=== PATIENT | male | born 1960 | race Caucasian/White ===

== ENCOUNTER 2016-06-17 08:41 | Emergency (ER) | payer OTHER ==
[~2016-06-17] VITALS: Ht 177.8 cm; Wt 89.2 kg
[~2016-06-17 08:41] MED LIST: ACETAMINOPHEN325 M1 PO; ALDACTONE50 MG PO; AMOXICILLIN875 MG PO; ASPIR-LOW81 MG PO; AUGMENTIN875 MG PO; B-121000 MC2 PO; BENTYL20 MG PO; CETIRIZINE HCL5 MG PO; CONSTULOSE10 GM/15 M PO; CORGARD20 MG PO; CYANOCOBALAM1000 MCG PO; DAILY VALUE1 EACH PO; DAILY VITE1 EAC1 PO; DESMOPRESS10 MCG/0.3 NS; DICYCLOMINE HCL20 MG PO; ENDOCET 5-3251 EACH PO; ENULOSE10 GM/15 M PO; FOLIC ACID1 MG PO; GABAPENTIN300 MG PO; INDERAL10 MG PO; K-DUR20 MEQ PO; KEPPRA500 MG PO; LASIX20 MG PO; LEVAQUIN750 MG PO; LEVOFLOXACIN750 MG PO; LIBRIUM25 MG PO; LISINOPRIL2.5 MG PO; MEN'S MULTI-VI1 EACH PO; MEPHYTON5 MG PO; NADOLOL20 MG PO; NADOLOL40 MG PO; ONCE DAILY1 EACH PO; PANTOPRAZOLE SO40 MG PO; PEPCID40 MG PO; PROTONIX40 MG PO; REGLAN10 MG PO; TRAMADOL HCL50 MG PO; TYLENOL REGULA325 MG PO; ULTRAM50 MG PO; VITAMIN B-1100 MG PO; ZOFRAN4 MG PO
[2016-06-17 09:32] LABS: HEMATOCRIT 29.9 % (38.0-50.0); MCH 26.6 PG (29.0-34.0); MCHC 31.4 G/DL (30.0-36.0); MCV 84.7 FL (86-99); MEAN PLAT.VOLUME 9.5 uM^3 (9.0-12.4); PLATELET COUNT 65 K/uL (156-360); RBC DIS.WIDTH-CV 21.3 % (11.8-14.6); RBC DIS.WIDTH-SD 61.8 % (39-53); RED BLOOD COUNT 3.53 M/uL (4.00-5.50)
[2016-06-17 09:34] LABS: BASOPHIL COUNT 0.1 K/uL (0-0.1); EOSINOPHIL (%) 5.1 % (0-5); EOSINOPHIL COUNT 0.2 K/uL (0-0.3); IMMATURE GRANULOCYTE (%) 0.3 % (0.0-0.7); IMMATURE GRANULOCYTE COUNT 0.1 K/uL; LYMPHOCYTE COUNT 1.3 K/uL (1.0-2.8); MONOCYTE COUNT 0.9 K/uL (0-0.8); NEUTROPHIL (%) 32.8 % (45-76); NEUTROPHIL COUNT 1.2 K/uL (1.8-6.4)
[2016-06-17 09:39] LABS: WHITE BLOOD COUNT 3.7 K/uL (4.1-10.2)
[2016-06-17 09:43] LABS: CHLORIDE 108 mEq/L (99-109); POTASSIUM 4.2 mEq/L (3.7-5.4)
[2016-06-17 09:45] LABS: GLUCOSE 109 mg/dL (70-99); SODIUM 142 mEq/L (136-147)
[2016-06-17 09:47] LABS: ANION GAP 11 MEQ/L (2-14); TOTAL BILIRUBIN 2.4 mg/dL (0.0-1.0)
[2016-06-17 09:49] LABS: ALKALINE PHOSPHATASE 160 IU/L (3-129); GFR ESTIMATE (CALCULATED) > 59 mL/min/
[2016-06-17 09:50] LABS: UREA NITROGEN (BUN) 8 mg/dL (9-23)
[2016-06-17 10:28] LABS: ADD MIUA? YES; BILIRUBIN MODERATE; BLOOD NEGATIVE; COLOR AMBER ((YELLOW)); GLUCOSE (STRIP) NEGATIVE; KETONES NEGATIVE; LEUKOCYTES NEGATIVE; NITRITE NEGATIVE; PROTEIN (STRIP) 30; SPECIFIC GRAVITY 1.023 (1.000-1.030)
[2016-06-17 10:37] LABS: ICTOTEST NEGATIVE
[2016-06-17 10:55] LABS: BACTERIA RARE /HPF; EPITHELIAL CELLS RARE /HPF; HYALINE CASTS 0-5 /LPF; MUCUS 1+ /LPF; RED BLOOD CELLS 0-5 /HPF (0-5); UCUL ADDED? NO; WHITE BLOOD CELLS 0-5 /HPF (0-5)
[2016-06-17 11:37] LABS: HEMATOLOGY COMMENT 1 SMEAR COMPATIBLE; PLAT.SUFFICIENCY DECREASED; USER ID TLW
[2016-06-17 19:26] VITALS: BP 142/76
== END 2016-06-17 19:38 | disposition short-term general hospital (02) ==
LOC: EME 08:41
DX: R79.89 Other specified abnormal findings of blood chemistry (principal); D68.0 Von Willebrand disease; C85.90 Non-Hodgkin lymphoma, unspecified, unspecified site; G46.3 Brain stem stroke syndrome; B19.20 Unspecified viral hepatitis C without hepatic coma
CPT/HCPCS: 80053; 81003; 85025; 99281; 99284; J7030

== ENCOUNTER 2016-06-29 19:46 | Inpatient (IN) | payer OTHER ==
[~2016-06-29] VITALS: Ht 177.8 cm; Wt 86.5 kg
[2016-06-29 20:20] LABS: CHLORIDE 111 mEq/L (99-109); SODIUM 147 mEq/L (136-147)
[2016-06-29 20:22] LABS: GLUCOSE 129 mg/dL (70-99)
[2016-06-29 20:23] LABS: ANION GAP 12 MEQ/L (2-14)
[2016-06-29 20:26] LABS: GFR ESTIMATE (CALCULATED) > 59 mL/min/; UREA NITROGEN (BUN) 6 mg/dL (9-23)
[2016-06-29 20:39] LABS: HEMATOCRIT 31.2 % (38.0-50.0); MCH 26.3 PG (29.0-34.0); MCHC 31.4 G/DL (30.0-36.0); MCV 83.9 FL (86-99); MEAN PLAT.VOLUME 11.2 uM^3 (9.0-12.4); PLATELET COUNT 80 K/uL (156-360); RBC DIS.WIDTH-SD 64.9 % (39-53); RED BLOOD COUNT 3.72 M/uL (4.00-5.50); WHITE BLOOD COUNT 3.5 K/uL (4.1-10.2)
[2016-06-29 20:43] LABS: SERUM ETHYL ALCOHOL 453 mg/dL
[2016-06-29 20:45] LABS: INTER. NORMALIZED RATIO 1.3; PROTHROMBIN TIME 13.8 (9.2-11.2)
[2016-06-29 20:47] LABS: LIPASE 25 U/L (1.0-51.0)
[2016-06-29] MEDS ORDERED: CORGARD40 MG PO (21:31)
[2016-06-29] MEDS ORDERED: PROTONIX40 MG PO (21:31)
[2016-06-29] MEDS ORDERED: CETIRIZINE HCL5 MG PO (21:32)
[2016-06-29] MEDS ORDERED: MEPHYTON5 MG PO (21:32)
[2016-06-29] MEDS ORDERED: EYE DROP LEFT EYE (21:33)
[2016-06-29 23:03] VITALS: BP 138/84
[2016-06-30 00:32] LABS: ADD MIUA? NO; BILIRUBIN NEGATIVE; BLOOD NEGATIVE; COLOR YELLOW ((YELLOW)); GLUCOSE (STRIP) NEGATIVE; KETONES NEGATIVE; LEUKOCYTES NEGATIVE; NITRITE NEGATIVE; PROTEIN (STRIP) NEGATIVE; SPECIFIC GRAVITY 1.015 (1.000-1.030); UCUL ADDED? NO
[2016-06-30 00:59] LABS: HEMATOCRIT 28.8 % (38.0-50.0); MCV 84.7 FL (86-99)
[2016-06-30 01:20] LABS: TROP-I INTERPRETATION NEGATIVE; TROPONIN-I < 0.01 ng/mL (0.0-0.30)
[2016-06-30 04:00] VITALS: BP 120/68
[2016-06-30 07:05] LABS: HEMATOCRIT 29.5 % (38.0-50.0)
[2016-06-30 07:28] LABS: ALKALINE PHOSPHATASE 114 IU/L (3-129); ANION GAP 11 MEQ/L (2-14); CHLORIDE 108 MEQ/L (99-109); GFR ESTIMATE (CALCULATED) > 59 mL/min/; POTASSIUM 3.8 MEQ/L (3.7-5.4); SAMPLE HEMOLYSIS CHECK 0; SAMPLE ICTERIC CHECK 0; SAMPLE LIPEMIA CHECK 0; SODIUM 144 MEQ/L (136-147); TOTAL BILIRUBIN 2.6 MG/DL (0.0-1.0); UREA NITROGEN (BUN) 5 mg/dL (9-23)
[2016-06-30 07:33] LABS: GLUCOSE 82 mg/dL (70-99); TROP-I INTERPRETATION NEGATIVE; TROPONIN-I < 0.01 ng/mL (0.0-0.30)
[2016-06-30 08:09] VITALS: BP 127/75
[2016-06-30 12:14] VITALS: BP 132/74
[2016-06-30 16:10] VITALS: BP 136/74
[2016-06-30 16:19] LABS: HEMATOCRIT 28.7 % (38.0-50.0); MCV 86.7 FL (86-99)
[2016-06-30 20:00] VITALS: BP 133/68
[2016-07-01] VITALS: BP 145/75
[2016-07-01 01:16] LABS: HEMATOCRIT 27.7 % (38.0-50.0); MCV 86.6 FL (86-99)
[2016-07-01 03:44] VITALS: BP 135/91
[2016-07-01 06:46] LABS: HEMATOCRIT 26.3 % (38.0-50.0); MCH 27.8 PG (29.0-34.0); MCHC 32.3 G/DL (30.0-36.0); MCV 85.9 FL (86-99); NRBC (%) 0.7 /100 WBC (0-0); RBC DIS.WIDTH-SD 63.4 % (39-53); RED BLOOD COUNT 3.06 M/uL (4.00-5.50)
[2016-07-01 07:00] VITALS: BP 146/76
[2016-07-01 07:15] LABS: EOSINOPHIL (%) 0.8 % (0-5); IMMATURE GRANULOCYTE (%) 0.4 % (0.0-0.7); LYMPHOCYTE COUNT 0.5 K/uL (1.0-2.8); MONOCYTE (%) 18.9 % (3-12); MONOCYTE COUNT 0.5 K/uL (0-0.8); NEUTROPHIL (%) 59.8 % (45-76); NEUTROPHIL COUNT 1.5 K/uL (1.8-6.4)
[2016-07-01 07:24] LABS: WHITE BLOOD COUNT 2.4 K/uL (4.1-10.2)
[2016-07-01 07:26] LABS: HEMATOLOGY COMMENT 1 SMEAR COMPATIBLE; PLAT.SUFFICIENCY DECREASED; USER ID TLW
[2016-07-01 07:30] LABS: ALKALINE PHOSPHATASE 107 IU/L (3-129); ANION GAP 9 MEQ/L (2-14); CHLORIDE 105 MEQ/L (99-109); GFR ESTIMATE (CALCULATED) > 59 mL/min/; POTASSIUM 3.6 MEQ/L (3.7-5.4); SAMPLE HEMOLYSIS CHECK 0; SAMPLE ICTERIC CHECK 1; SAMPLE LIPEMIA CHECK 0; SODIUM 140 MEQ/L (136-147); UREA NITROGEN (BUN) 11 mg/dL (9-23)
[2016-07-01 07:33] LABS: PLATELET COUNT 40 K/uL (156-360)
[2016-07-01 07:35] LABS: GLUCOSE 154 mg/dL (70-99); TOTAL BILIRUBIN 4.5 MG/DL (0.0-1.0)
[2016-07-01 11:44] VITALS: BP 142/80
[2016-07-01 13:12] LABS: POC NON-PRINT COM 1 ND
[2016-07-01 15:55] VITALS: BP 137/77
[2016-07-01 16:24] LABS: HEMATOCRIT 29.3 % (38.0-50.0); MCV 86.2 FL (86-99)
[2016-07-01 19:30] VITALS: BP 130/72
[2016-07-02] VITALS (7 sets, daily range): BP systolic 115–140; BP diastolic 68–89
[2016-07-02 00:36] LABS: HEMATOCRIT 27.2 % (38.0-50.0); MCV 85.5 FL (86-99)
[2016-07-02 08:38] LABS: HEMATOCRIT 24.3 % (38.0-50.0); MCV 85.3 FL (86-99)
[2016-07-02 15:49] LABS: HEMATOCRIT 25.3 % (38.0-50.0); MCV 84.6 FL (86-99)
[2016-07-03 00:51] LABS: HEMATOCRIT 24.8 % (38.0-50.0); MCV 85.5 FL (86-99)
[2016-07-03 04:00] VITALS: BP 119/71
[2016-07-03 08:05] VITALS: BP 116/61
[2016-07-03 09:11] LABS: HEMATOCRIT 24.8 % (38.0-50.0); MCV 84.6 FL (86-99)
[2016-07-03 11:38] VITALS: BP 126/73
[2016-07-03 15:35] VITALS: BP 122/70
[2016-07-03 16:49] LABS: HEMATOCRIT 24.4 % (38.0-50.0); MCV 84.1 FL (86-99)
[2016-07-03 19:47] VITALS: BP 123/68
[2016-07-03 23:49] VITALS: BP 106/60
[2016-07-04 00:33] LABS: HEMATOCRIT 25.1 % (38.0-50.0)
[2016-07-04 03:40] VITALS: BP 112/62
[2016-07-04 07:48] VITALS: BP 114/67
[2016-07-04 08:57] LABS: HEMATOCRIT 25.4 % (38.0-50.0); MCV 84.7 FL (86-99)
[2016-07-04 11:35] VITALS: BP 118/67
== END 2016-07-04 15:20 | disposition home or self-care (01) | DRG 378 ==
LOC: EME → EDBD 19:46 → EDOF 22:29 → 5SOUTH 22:29
PROVIDERS: Emergency Medicine; Hospitalist; Specialist
DX: K29.91 Gastroduodenitis, unspecified, with bleeding (principal); K70.30 Alcoholic cirrhosis of liver without ascites; D68.0 Von Willebrand disease; K92.0 Hematemesis; F17.210 Nicotine dependence, cigarettes, uncomplicated; B18.2 Chronic viral hepatitis C; F10.220 Alcohol dependence with intoxication, uncomplicated; Y90.8 Blood alcohol level of 240 mg/100 ml or more; D50.0 Iron deficiency anemia secondary to blood loss (chronic)
CPT/HCPCS: 80048; 80053; 81003; 82272; 83690; 84484; 85014; 85018; 85025; 85027; 85610; 86850; 86900; 86901; 86920; 99281; 99285; C9113; G0480; J2060; J2270; J2354; J2405; J2765; J3411; J3475; J7030; J7042; J7050; Q0164

== ENCOUNTER 2016-07-11 21:01 | Emergency (ER) | payer OTHER ==
[~2016-07-11] VITALS: Ht 177.8 cm; Wt 84.4 kg
[~2016-07-11 21:01] MED LIST changes: +CORGARD40 MG PO; +EYE DROP LEFT EYE
[2016-07-11 21:36] LABS: HEMATOCRIT 30.9 % (38.0-50.0); MCH 27.2 PG (29.0-34.0); MCHC 32.4 G/DL (30.0-36.0); MEAN PLAT.VOLUME 9.9 uM^3 (9.0-12.4); RBC DIS.WIDTH-CV 21.3 % (11.8-14.6); RBC DIS.WIDTH-SD 65.1 % (39-53)
[2016-07-11 21:37] LABS: PLATELET COUNT 66 K/uL (156-360); RED BLOOD COUNT 3.68 M/uL (4.00-5.50); WHITE BLOOD COUNT 6.3 K/uL (4.1-10.2)
[2016-07-11 21:47] LABS: CHLORIDE 106 mEq/L (99-109); INTER. NORMALIZED RATIO 1.4; POTASSIUM 3.7 mEq/L (3.7-5.4); PROTHROMBIN TIME 14.3 (9.2-11.2); SODIUM 142 mEq/L (136-147)
[2016-07-11 21:49] LABS: GLUCOSE 135 mg/dL (70-99)
[2016-07-11 21:50] LABS: ANION GAP 14 MEQ/L (2-14)
[2016-07-11 21:51] LABS: TOTAL BILIRUBIN 2.9 mg/dL (0.0-1.0)
[2016-07-11 21:53] LABS: ALKALINE PHOSPHATASE 158 IU/L (3-129); GFR ESTIMATE (CALCULATED) > 59 mL/min/
[2016-07-11 21:54] LABS: DIRECT BILIRUBIN 1.9 mg/dL (0.0-0.3); UREA NITROGEN (BUN) 5 mg/dL (9-23)
[2016-07-11 21:56] LABS: LIPASE 28 U/L (1.0-51.0)
[2016-07-11] MEDS ORDERED: KRISTALOSE20 GM PO (23:55)
[2016-07-12 00:07] VITALS: BP 116/62
[2016-07-13] MEDS ORDERED: LIBRIUM25 MG PO (03:14)
[2016-07-13] MEDS ORDERED: THIAMINE HCL100 MG PO (03:14)
== END 2016-07-12 00:16 | disposition home or self-care (01) ==
LOC: EME → EDBD 21:01 → EME 07-12 00:16
PROVIDERS: Emergency Medicine
DX: R11.10 Vomiting, unspecified (principal); E86.0 Dehydration; I10 Essential (primary) hypertension; D66 Hereditary factor VIII deficiency
CPT/HCPCS: 80048; 80076; 82140; 83690; 85027; 85610; 86850; 86900; 86901; 99281; 99285; C9113; J7030

== ENCOUNTER 2016-07-12 22:51 | Emergency (ER) | payer OTHER ==
[~2016-07-12] VITALS: Ht 177.8 cm; Wt 88.9 kg
[~2016-07-12 22:51] MED LIST changes: +KRISTALOSE20 GM PO
[2016-07-13 00:32] LABS: BASOPHIL COUNT 0.1 K/uL (0-0.1); EOSINOPHIL (%) 2.6 % (0-5); EOSINOPHIL COUNT 0.1 K/uL (0-0.3); HEMATOCRIT 28.3 % (38.0-50.0); IMMATURE GRANULOCYTE (%) 0.2 % (0.0-0.7); INSTRUMENT ABS NEUTROPHIL CT 1.8 K/uL; LYMPHOCYTE COUNT 1.7 K/uL (1.0-2.8); MCH 26.9 PG (29.0-34.0); MCHC 31.8 G/DL (30.0-36.0); MCV 84.7 FL (86-99); MEAN PLAT.VOLUME 11.7 uM^3 (9.0-12.4); MONOCYTE (%) 15.7 % (3-12); MONOCYTE COUNT 0.7 K/uL (0-0.8); NEUTROPHIL (%) 41.6 % (45-76); NEUTROPHIL COUNT 1.8 K/uL (1.8-6.4); PLATELET COUNT 57 K/uL (156-360); RBC DIS.WIDTH-CV 21.4 % (11.8-14.6); RBC DIS.WIDTH-SD 66.3 % (39-53); RED BLOOD COUNT 3.34 M/uL (4.00-5.50); WHITE BLOOD COUNT 4.3 K/uL (4.1-10.2)
[2016-07-13 00:37] LABS: CHLORIDE 106 mEq/L (99-109); POTASSIUM 3.6 mEq/L (3.7-5.4); SODIUM 141 mEq/L (136-147)
[2016-07-13 00:39] LABS: GLUCOSE 128 mg/dL (70-99)
[2016-07-13 00:41] LABS: ANION GAP 11 MEQ/L (2-14); TOTAL BILIRUBIN 3.3 mg/dL (0.0-1.0)
[2016-07-13 00:43] LABS: ALKALINE PHOSPHATASE 126 IU/L (3-129); GFR ESTIMATE (CALCULATED) > 59 mL/min/; INTER. NORMALIZED RATIO 1.4; PROTHROMBIN TIME 14.7 (9.2-11.2); PTT 45.1 (25-32)
[2016-07-13 00:44] LABS: UREA NITROGEN (BUN) 5 mg/dL (9-23)
[2016-07-13] MEDS ORDERED: THIAMINE HCL100 MG PO (03:14)
[2016-07-13] MEDS ORDERED: LIBRIUM25 MG PO (03:14)
[2016-07-13 03:21] VITALS: BP 115/74
== END 2016-07-13 03:22 | disposition home or self-care (01) ==
LOC: EME 22:51
PROVIDERS: Emergency Medicine
DX: R04.0 Epistaxis (principal); D64.89 Other specified anemias; D69.6 Thrombocytopenia, unspecified; F10.20 Alcohol dependence, uncomplicated; K70.30 Alcoholic cirrhosis of liver without ascites; D68.0 Von Willebrand disease; I10 Essential (primary) hypertension
CPT/HCPCS: 80053; 85025; 85610; 85730; 99281; 99284

== ENCOUNTER 2016-07-15 10:49 | Inpatient (IN) | payer OTHER ==
[~2016-07-15] VITALS: Ht 177.8 cm; Wt 82.8 kg
[~2016-07-15 10:49] MED LIST changes: +THIAMINE HCL100 MG PO
[2016-07-15 11:41] LABS: HEMATOCRIT 30.2 % (38.0-50.0); MCH 27.5 PG (29.0-34.0); MCHC 31.8 G/DL (30.0-36.0); MCV 86.5 FL (86-99); MEAN PLAT.VOLUME 12.2 uM^3 (9.0-12.4); PLATELET COUNT 52 K/uL (156-360); RBC DIS.WIDTH-SD 65.6 % (39-53); RED BLOOD COUNT 3.49 M/uL (4.00-5.50); WHITE BLOOD COUNT 6.9 K/uL (4.1-10.2)
[2016-07-15 11:54] LABS: CHLORIDE 102 mEq/L (99-109); GLUCOSE 144 mg/dL (70-99); POTASSIUM 3.5 mEq/L (3.7-5.4); SODIUM 138 mEq/L (136-147)
[2016-07-15 11:55] LABS: ANION GAP 14 MEQ/L (2-14)
[2016-07-15 11:57] LABS: ALKALINE PHOSPHATASE 121 IU/L (3-129); GFR ESTIMATE (CALCULATED) > 59 mL/min/
[2016-07-15 11:58] LABS: TOTAL BILIRUBIN 6.6 mg/dL (0.0-1.0); UREA NITROGEN (BUN) 14 mg/dL (9-23)
[2016-07-15 12:14] LABS: LIPASE 19 U/L (1.0-51.0)
[2016-07-15 13:27] LABS: SERUM ETHYL ALCOHOL < 10 mg/dL
[2016-07-15 13:28] LABS: ADD MIUA? YES; BILIRUBIN SMALL; BLOOD NEGATIVE; COLOR AMBER ((YELLOW)); GLUCOSE (STRIP) NEGATIVE; KETONES 20; LEUKOCYTES NEGATIVE; NITRITE NEGATIVE; PROTEIN (STRIP) 100; SPECIFIC GRAVITY 1.029 (1.000-1.030)
[2016-07-15 13:35] LABS: BACTERIA RARE /HPF; CALCIUM OXALATE CRYSTALS 2+ /HPF; EPITHELIAL CELLS RARE /HPF; HYALINE CASTS 15-20 /LPF; MUCUS 4+ /LPF; RED BLOOD CELLS 0-5 /HPF (0-5); UCUL ADDED? NO; WHITE BLOOD CELLS 0-5 /HPF (0-5)
[2016-07-15] MEDS ORDERED: CHEWABLE-VITE1 EACH PO (15:02)
[2016-07-15] MEDS ORDERED: ZOFRAN4 MG PO (15:04)
[2016-07-15 16:02] VITALS: BP 121/62
[2016-07-15 20:02] VITALS: BP 117/65
[2016-07-15 21:42] LABS: HEMATOCRIT 23.1 % (38.0-50.0); MCV 87.8 FL (86-99)
[2016-07-16] VITALS (15 sets, daily range): BP systolic 102–150; BP diastolic 57–71
[2016-07-16 06:59] LABS: HEMATOCRIT 23.2 % (38.0-50.0); MCH 27.5 PG (29.0-34.0); MCV 88.5 FL (86-99); RBC DIS.WIDTH-CV 21.7 % (11.8-14.6); RBC DIS.WIDTH-SD 69.1 % (39-53)
[2016-07-16 07:01] LABS: RED BLOOD COUNT 2.62 M/uL (4.00-5.50); WHITE BLOOD COUNT 4.4 K/uL (4.1-10.2)
[2016-07-16 07:09] LABS: ALKALINE PHOSPHATASE 86 IU/L (3-129); DIRECT BILIRUBIN 1.7 mg/dL (0.0-0.3)
[2016-07-16 08:22] LABS: IMM.PLATELET FRACTION 7.4 (1-7); MEAN PLAT.VOLUME 12.5 uM^3 (9.0-12.4)
[2016-07-16 08:28] LABS: PLATELET COUNT 32 K/uL (156-360)
[2016-07-16 20:48] LABS: HEMATOCRIT 25.5 % (38.0-50.0); MCV 89.5 FL (86-99)
[2016-07-17] VITALS (7 sets, daily range): BP systolic 105–150; BP diastolic 56–71
[2016-07-17 02:42] LABS: HEMATOCRIT 26.1 % (38.0-50.0); MCH 28.2 PG (29.0-34.0); MCHC 32.2 G/DL (30.0-36.0); MCV 87.6 FL (86-99); RBC DIS.WIDTH-CV 20.3 % (11.8-14.6); RBC DIS.WIDTH-SD 61.7 % (39-53); RED BLOOD COUNT 2.98 M/uL (4.00-5.50); WHITE BLOOD COUNT 3.9 K/uL (4.1-10.2)
[2016-07-17 02:51] LABS: CHLORIDE 106 mEq/L (99-109); POTASSIUM 3.6 mEq/L (3.7-5.4); SODIUM 137 mEq/L (136-147)
[2016-07-17 02:53] LABS: GLUCOSE 116 mg/dL (70-99)
[2016-07-17 02:54] LABS: ANION GAP 9 MEQ/L (2-14)
[2016-07-17 02:57] LABS: GFR ESTIMATE (CALCULATED) > 59 mL/min/
[2016-07-17 02:58] LABS: UREA NITROGEN (BUN) 6 mg/dL (9-23)
[2016-07-17 03:46] LABS: PLATELET COUNT 39 K/uL (156-360)
[2016-07-17 03:49] LABS: MEAN PLAT.VOLUME 10.2 uM^3 (9.0-12.4)
[2016-07-17 10:34] LABS: HEMATOCRIT 26.7 % (38.0-50.0); MCH 28.6 PG (29.0-34.0); MCHC 32.6 G/DL (30.0-36.0); MCV 87.8 FL (86-99); MEAN PLAT.VOLUME 10.6 uM^3 (9.0-12.4); RBC DIS.WIDTH-CV 20.5 % (11.8-14.6); RBC DIS.WIDTH-SD 61.1 % (39-53); RED BLOOD COUNT 3.04 M/uL (4.00-5.50); WHITE BLOOD COUNT 3.6 K/uL (4.1-10.2)
[2016-07-17 10:39] LABS: PLATELET COUNT 58 K/uL (156-360)
[2016-07-18 00:27] VITALS: BP 123/69
[2016-07-18 04:09] VITALS: BP 117/60
[2016-07-18 06:29] LABS: HEMATOCRIT 25.5 % (38.0-50.0); MCH 28.1 PG (29.0-34.0); MCHC 31.8 G/DL (30.0-36.0); MCV 88.5 FL (86-99); MEAN PLAT.VOLUME 10.6 uM^3 (9.0-12.4); PLATELET COUNT 53 K/uL (156-360); RBC DIS.WIDTH-CV 21.2 % (11.8-14.6); RED BLOOD COUNT 2.88 M/uL (4.00-5.50); WHITE BLOOD COUNT 3.2 K/uL (4.1-10.2)
[2016-07-18 06:59] LABS: GLUCOSE 103 mg/dL (70-99)
[2016-07-18 07:00] LABS: ANION GAP 8 MEQ/L (2-14); CHLORIDE 103 MEQ/L (99-109); GFR ESTIMATE (CALCULATED) > 59 mL/min/; POTASSIUM 3.6 MEQ/L (3.7-5.4); SAMPLE HEMOLYSIS CHECK 0; SAMPLE ICTERIC CHECK 1; SAMPLE LIPEMIA CHECK 0; SODIUM 135 MEQ/L (136-147); UREA NITROGEN (BUN) 4 mg/dL (9-23)
[2016-07-18 07:26] VITALS: BP 115/68
[2016-07-18 10:39] VITALS: BP 105/57
[2016-07-18] MEDS ORDERED: ATENOLOL25 MG PO (12:06)
[2016-07-18] MEDS ORDERED: PROTONIX40 MG PO (12:06)
== END 2016-07-18 13:57 | disposition home or self-care (01) | DRG 812 ==
LOC: EME 10:49 → 5WEST 14:06 → EDOF 14:06 → 5WEST 15:49
PROVIDERS: Hospitalist; Internal Medicine; Physician Assistant Medical; Specialist
PROC: 30233N1 Transfusion of Nonautologous Red Blood Cells into Peripheral Vein, Percutaneous Approach (ICD-10-PCS; principal; 2016-07-16)
PROC: 30233R1 Transfusion of Nonautologous Platelets into Peripheral Vein, Percutaneous Approach (ICD-10-PCS; 2016-07-17)
PROC: 0DJ08ZZ Inspection of Upper Intestinal Tract, Via Natural or Artificial Opening Endoscopic (ICD-10-PCS; 2016-07-17)
DX: D62 Acute posthemorrhagic anemia (principal); K92.1 Melena; D68.0 Von Willebrand disease; K70.30 Alcoholic cirrhosis of liver without ascites; I85.10 Secondary esophageal varices without bleeding; K76.6 Portal hypertension; F10.20 Alcohol dependence, uncomplicated; C85.90 Non-Hodgkin lymphoma, unspecified, unspecified site; D69.59 Other secondary thrombocytopenia; E87.6 Hypokalemia; B18.2 Chronic viral hepatitis C; E86.0 Dehydration; F17.210 Nicotine dependence, cigarettes, uncomplicated; R11.2 Nausea with vomiting, unspecified; I11.0 Hypertensive heart disease with heart failure; I50.9 Heart failure, unspecified
CPT/HCPCS: 76705; 80048; 80053; 80076; 81003; 82140; 83690; 85014; 85018; 85027; 86850; 86880; 86900; 86901; 86920; 99281; 99285; C9113; G0378; G0480; J1940; J2405; J3411; J3480; J7030; P9016; P9035

== ENCOUNTER 2016-07-26 22:13 | Emergency (ER) | payer OTHER ==
[~2016-07-26] VITALS: Ht 177.8 cm; Wt 89.7 kg
[~2016-07-26 22:13] MED LIST changes: +ATENOLOL25 MG PO; +CHEWABLE-VITE1 EACH PO
[2016-07-26 22:58] LABS: HEMATOCRIT 35.4 % (38.0-50.0); MCH 27.5 PG (29.0-34.0); MCHC 31.4 G/DL (30.0-36.0); MCV 87.8 FL (86-99); MEAN PLAT.VOLUME 9.8 uM^3 (9.0-12.4); PLATELET COUNT 132 K/uL (156-360); RBC DIS.WIDTH-CV 20.7 % (11.8-14.6); RBC DIS.WIDTH-SD 67.7 % (39-53); RED BLOOD COUNT 4.03 M/uL (4.00-5.50); WHITE BLOOD COUNT 4.4 K/uL (4.1-10.2)
[2016-07-26 22:59] LABS: CHLORIDE 108 mEq/L (99-109); POTASSIUM 3.7 mEq/L (3.7-5.4)
[2016-07-26 23:00] LABS: SODIUM 143 mEq/L (136-147)
[2016-07-26 23:07] LABS: GLUCOSE 122 mg/dL (70-99)
[2016-07-26 23:08] LABS: ANION GAP 13 MEQ/L (2-14)
[2016-07-26 23:10] LABS: SERUM ETHYL ALCOHOL 412 mg/dL
[2016-07-26 23:11] LABS: GFR ESTIMATE (CALCULATED) > 59 mL/min/
[2016-07-26 23:12] LABS: UREA NITROGEN (BUN) 4 mg/dL (9-23)
[2016-07-26 23:20] LABS: INTER. NORMALIZED RATIO 1.3; PROTHROMBIN TIME 13.8 (9.2-11.2); PTT 38.4 (25-32)
[2016-07-27 01:28] VITALS: BP 96/58
== END 2016-07-27 01:37 | disposition home or self-care (01) ==
LOC: EME → EDBD 22:13 → EME 07-27 01:37
PROVIDERS: Emergency Medicine
DX: S00.211A Abrasion of right eyelid and periocular area, initial encounter (principal); M54.2 Cervicalgia; W18.30XA Fall on same level, unspecified, initial encounter; F10.229 Alcohol dependence with intoxication, unspecified; Y90.8 Blood alcohol level of 240 mg/100 ml or more; R00.2 Palpitations; R42 Dizziness and giddiness; I10 Essential (primary) hypertension
CPT/HCPCS: 70450; 80048; 85027; 85610; 85730; 93005; 99281; 99284; G0480

== ENCOUNTER 2016-07-29 14:50 | Inpatient (IN) | payer OTHER ==
[~2016-07-29] VITALS: Ht 177.8 cm; Wt 86.1 kg
[2016-07-29 15:52] LABS: HEMATOCRIT 30.2 % (38.0-50.0); MCH 27.3 PG (29.0-34.0); MCHC 31.8 G/DL (30.0-36.0); MCV 85.8 FL (86-99); MEAN PLAT.VOLUME 10.7 uM^3 (9.0-12.4); PLATELET COUNT 101 K/uL (156-360); RBC DIS.WIDTH-CV 20.1 % (11.8-14.6); RBC DIS.WIDTH-SD 63.1 % (39-53); RED BLOOD COUNT 3.52 M/uL (4.00-5.50); WHITE BLOOD COUNT 4.3 K/uL (4.1-10.2)
[2016-07-29 16:03] LABS: CHLORIDE 106 mEq/L (99-109); POTASSIUM 3.7 mEq/L (3.7-5.4); SODIUM 141 mEq/L (136-147)
[2016-07-29 16:05] LABS: GLUCOSE 131 mg/dL (70-99)
[2016-07-29 16:07] LABS: ANION GAP 14 MEQ/L (2-14); TOTAL BILIRUBIN 2.2 mg/dL (0.0-1.0)
[2016-07-29 16:09] LABS: ALKALINE PHOSPHATASE 106 IU/L (3-129); GFR ESTIMATE (CALCULATED) > 59 mL/min/
[2016-07-29 16:10] LABS: UREA NITROGEN (BUN) 4 mg/dL (9-23)
[2016-07-29 16:12] LABS: LIPASE 30 U/L (1.0-51.0)
[2016-07-29] MEDS ORDERED: PROTONIX40 MG PO (18:15)
[2016-07-29] MEDS ORDERED: TENORMIN25 MG PO (18:17)
[2016-07-29 20:16] VITALS: BP 148/62
[2016-07-30 00:35] LABS: HEMATOCRIT 27.9 % (38.0-50.0); MCV 86.9 FL (86-99)
[2016-07-30 01:15] VITALS: BP 105/56
[2016-07-30 05:18] VITALS: BP 112/63
[2016-07-30 07:26] LABS: HEMATOCRIT 26.5 % (38.0-50.0); MCH 27.5 PG (29.0-34.0); MCHC 31.3 G/DL (30.0-36.0); MCV 87.7 FL (86-99); PLATELET COUNT 73 K/uL (156-360); RBC DIS.WIDTH-CV 19.9 % (11.8-14.6); RBC DIS.WIDTH-SD 63.7 % (39-53); RED BLOOD COUNT 3.02 M/uL (4.00-5.50)
[2016-07-30 07:50] LABS: ANION GAP 11 MEQ/L (2-14); CHLORIDE 108 MEQ/L (99-109); GFR ESTIMATE (CALCULATED) > 59 mL/min/; GLUCOSE 100 mg/dL (70-99); POTASSIUM 3.3 MEQ/L (3.7-5.4); SAMPLE HEMOLYSIS CHECK 0; SAMPLE ICTERIC CHECK 0; SAMPLE LIPEMIA CHECK 0; SODIUM 143 MEQ/L (136-147); UREA NITROGEN (BUN) 4 mg/dL (9-23)
[2016-07-30 07:52] LABS: ALKALINE PHOSPHATASE 75 IU/L (3-129)
[2016-07-30 08:17] LABS: WHITE BLOOD COUNT 2.6 K/uL (4.1-10.2)
[2016-07-30 08:23] VITALS: BP 118/65
[2016-07-30 12:10] VITALS: BP 126/75
[2016-07-30 15:14] VITALS: BP 133/74
[2016-07-30 15:46] LABS: INTER. NORMALIZED RATIO 1.3; PROTHROMBIN TIME 13.6 (9.2-11.2); PTT 41.3 (25-32)
[2016-07-30 19:37] VITALS: BP 133/77
[2016-07-31 04:03] VITALS: BP 130/71
[2016-07-31 07:22] LABS: HEMATOCRIT 27.1 % (38.0-50.0); MCH 27.3 PG (29.0-34.0); MCHC 31.4 G/DL (30.0-36.0); MCV 87.1 FL (86-99); MEAN PLAT.VOLUME 10.5 uM^3 (9.0-12.4); PLATELET COUNT 56 K/uL (156-360); RBC DIS.WIDTH-CV 18.7 % (11.8-14.6); RBC DIS.WIDTH-SD 59.8 % (39-53); RED BLOOD COUNT 3.11 M/uL (4.00-5.50); WHITE BLOOD COUNT 2.1 K/uL (4.1-10.2)
[2016-07-31 08:11] VITALS: BP 117/64
[2016-07-31 12:00] VITALS: BP 142/70
[2016-07-31 15:24] VITALS: BP 121/69
[2016-07-31 17:58] LABS: HEMATOCRIT 27.2 % (38.0-50.0); MCH 27.4 PG (29.0-34.0); MCHC 31.3 G/DL (30.0-36.0); MCV 87.7 FL (86-99); MEAN PLAT.VOLUME 10.9 uM^3 (9.0-12.4); PLATELET COUNT 53 K/uL (156-360); RBC DIS.WIDTH-CV 18.6 % (11.8-14.6); RBC DIS.WIDTH-SD 59.4 % (39-53); WHITE BLOOD COUNT 2.4 K/uL (4.1-10.2)
[2016-07-31 19:55] VITALS: BP 118/68
[2016-07-31 23:32] VITALS: BP 112/64
[2016-08-01 03:09] VITALS: BP 120/67
[2016-08-01 06:39] LABS: HEMATOCRIT 26.2 % (38.0-50.0); MCH 27.3 PG (29.0-34.0); MCHC 31.7 G/DL (30.0-36.0); MCV 86.2 FL (86-99); MEAN PLAT.VOLUME 11.1 uM^3 (9.0-12.4); PLATELET COUNT 56 K/uL (156-360); RBC DIS.WIDTH-CV 18.5 % (11.8-14.6); RBC DIS.WIDTH-SD 58.3 % (39-53); RED BLOOD COUNT 3.04 M/uL (4.00-5.50); WHITE BLOOD COUNT 2.7 K/uL (4.1-10.2)
[2016-08-01 07:07] LABS: ANION GAP 6 MEQ/L (2-14); CHLORIDE 100 MEQ/L (99-109); GFR ESTIMATE (CALCULATED) > 59 mL/min/; GLUCOSE 124 mg/dL (70-99); POTASSIUM 3.2 MEQ/L (3.7-5.4); SAMPLE HEMOLYSIS CHECK 0; SAMPLE ICTERIC CHECK 0; SAMPLE LIPEMIA CHECK 0; UREA NITROGEN (BUN) 3 mg/dL (9-23)
[2016-08-01 07:08] LABS: SODIUM 132 MEQ/L (136-147)
[2016-08-01 08:16] VITALS: BP 113/59
[2016-08-01 11:46] VITALS: BP 112/59
[2016-08-01 15:57] VITALS: BP 107/54
[2016-08-01 18:04] LABS: HEMATOCRIT 26.7 % (38.0-50.0); MCH 27.5 PG (29.0-34.0); MCHC 31.5 G/DL (30.0-36.0); MCV 87.5 FL (86-99); MEAN PLAT.VOLUME 10.9 uM^3 (9.0-12.4); PLATELET COUNT 56 K/uL (156-360); RBC DIS.WIDTH-CV 18.6 % (11.8-14.6); RED BLOOD COUNT 3.05 M/uL (4.00-5.50); WHITE BLOOD COUNT 2.6 K/uL (4.1-10.2)
[2016-08-01 19:53] VITALS: BP 93/56
[2016-08-01 20:18] VITALS: BP 103/62
[2016-08-02] VITALS: BP 78/42
[2016-08-02 02:07] LABS: HEMATOCRIT 25.9 % (38.0-50.0); MCH 27.6 PG (29.0-34.0); MCHC 31.3 G/DL (30.0-36.0); MCV 88.1 FL (86-99); MEAN PLAT.VOLUME 10.8 uM^3 (9.0-12.4); PLATELET COUNT 53 K/uL (156-360); RBC DIS.WIDTH-CV 18.7 % (11.8-14.6); RBC DIS.WIDTH-SD 60.2 % (39-53); RED BLOOD COUNT 2.94 M/uL (4.00-5.50); WHITE BLOOD COUNT 2.8 K/uL (4.1-10.2)
[2016-08-02 02:10] LABS: ADD MIUA? NO; BILIRUBIN NEGATIVE; BLOOD NEGATIVE; COLOR AMBER ((YELLOW)); GLUCOSE (STRIP) NEGATIVE; KETONES NEGATIVE; LEUKOCYTES NEGATIVE; NITRITE NEGATIVE; PROTEIN (STRIP) NEGATIVE; SPECIFIC GRAVITY 1.016 (1.000-1.030); UCUL ADDED? NO
[2016-08-02 04:02] VITALS: BP 105/62
[2016-08-02 07:36] LABS: HEMATOCRIT 26.4 % (38.0-50.0); MCH 27.9 PG (29.0-34.0); MCHC 31.4 G/DL (30.0-36.0); MCV 88.6 FL (86-99); PLATELET COUNT 57 K/uL (156-360); RBC DIS.WIDTH-CV 18.7 % (11.8-14.6); RED BLOOD COUNT 2.98 M/uL (4.00-5.50); WHITE BLOOD COUNT 2.6 K/uL (4.1-10.2)
[2016-08-02 07:40] VITALS: BP 113/68
[2016-08-02 11:50] VITALS: BP 116/63
[2016-08-02 16:43] VITALS: BP 110/70
[2016-08-02 18:02] LABS: HEMATOCRIT 28.2 % (38.0-50.0); MCH 27.8 PG (29.0-34.0); MCHC 31.6 G/DL (30.0-36.0); MCV 88.1 FL (86-99); MEAN PLAT.VOLUME 11.6 uM^3 (9.0-12.4); PLATELET COUNT 56 K/uL (156-360); RBC DIS.WIDTH-CV 18.7 % (11.8-14.6); RBC DIS.WIDTH-SD 59.9 % (39-53); WHITE BLOOD COUNT 2.6 K/uL (4.1-10.2)
[2016-08-02 19:50] VITALS: BP 119/76
[2016-08-03 00:09] VITALS: BP 133/62
[2016-08-03 04:17] VITALS: BP 109/74
[2016-08-03 07:27] LABS: HEMATOCRIT 28.5 % (38.0-50.0); MCH 27.9 PG (29.0-34.0); MCHC 31.9 G/DL (30.0-36.0); MCV 87.4 FL (86-99); MEAN PLAT.VOLUME 11.4 uM^3 (9.0-12.4); PLATELET COUNT 74 K/uL (156-360); RBC DIS.WIDTH-CV 18.9 % (11.8-14.6); RBC DIS.WIDTH-SD 59.1 % (39-53); RED BLOOD COUNT 3.26 M/uL (4.00-5.50); WHITE BLOOD COUNT 3.6 K/uL (4.1-10.2)
[2016-08-03 08:08] VITALS: BP 112/67
[2016-08-03 11:48] VITALS: BP 118/71
[2016-08-03 16:09] VITALS: BP 119/71
[2016-08-03 17:56] LABS: HEMATOCRIT 27.1 % (38.0-50.0); MCH 28.2 PG (29.0-34.0); MCHC 32.1 G/DL (30.0-36.0); MEAN PLAT.VOLUME 11.4 uM^3 (9.0-12.4); PLATELET COUNT 72 K/uL (156-360); RBC DIS.WIDTH-CV 19.7 % (11.8-14.6); RBC DIS.WIDTH-SD 61.7 % (39-53); RED BLOOD COUNT 3.08 M/uL (4.00-5.50); WHITE BLOOD COUNT 3.7 K/uL (4.1-10.2)
[2016-08-03 23:47] VITALS: BP 110/64
[2016-08-04 04:37] VITALS: BP 118/71
[2016-08-04 07:07] LABS: EOSINOPHIL (%) 5.6 % (0-5); EOSINOPHIL COUNT 0.2 K/uL (0-0.3); HEMATOCRIT 27.4 % (38.0-50.0); IMMATURE GRANULOCYTE (%) 0.3 % (0.0-0.7); INSTRUMENT ABS NEUTROPHIL CT 1.6 K/uL; LYMPHOCYTE COUNT 0.9 K/uL (1.0-2.8); MCH 27.8 PG (29.0-34.0); MCHC 31.8 G/DL (30.0-36.0); MCV 87.5 FL (86-99); MEAN PLAT.VOLUME 10.6 uM^3 (9.0-12.4); MONOCYTE (%) 21.1 % (3-12); MONOCYTE COUNT 0.8 K/uL (0-0.8); NEUTROPHIL (%) 45.8 % (45-76); NEUTROPHIL COUNT 1.6 K/uL (1.8-6.4); PLATELET COUNT 64 K/uL (156-360); RBC DIS.WIDTH-CV 19.7 % (11.8-14.6); RBC DIS.WIDTH-SD 61.8 % (39-53); RED BLOOD COUNT 3.13 M/uL (4.00-5.50); WHITE BLOOD COUNT 3.6 K/uL (4.1-10.2)
[2016-08-04 07:32] LABS: ANION GAP 8 MEQ/L (2-14); CHLORIDE 103 MEQ/L (99-109); GFR ESTIMATE (CALCULATED) > 59 mL/min/; GLUCOSE 134 mg/dL (70-99); POTASSIUM 3.5 MEQ/L (3.7-5.4); SAMPLE HEMOLYSIS CHECK 0; SAMPLE ICTERIC CHECK 0; SAMPLE LIPEMIA CHECK 0; SODIUM 137 MEQ/L (136-147); UREA NITROGEN (BUN) 5 mg/dL (9-23)
[2016-08-04 07:37] VITALS: BP 110/89
[2016-08-04 11:10] VITALS: BP 102/57
[2016-08-04 14:30] VITALS: BP 110/79
[2016-08-04] MEDS ORDERED: AMITRIPTYLINE H10 MG PO (15:06)
[2016-08-04] MEDS ORDERED: ENULOSE10 GM/15 M PO (15:06)
[2016-08-04] MEDS ORDERED: PROTONIX40 MG PO (15:07)
[2016-08-04] MEDS ORDERED: TRAMADOL HCL50 MG PO ×2 (15:10→15:28)
[2016-08-04] MEDS ORDERED: Thiamine,Vitamin B1 PO (15:10)
== END 2016-08-04 16:06 | disposition home or self-care (01) | DRG 369 ==
LOC: EME 14:50 → EDOF 18:54 → 5SOUTH 18:54
PROVIDERS: Emergency Medicine; Family Medicine; Hospitalist; Internal Medicine; Specialist
DX: I85.11 Secondary esophageal varices with bleeding (principal); S36.892A Contusion of other intra-abdominal organs, initial encounter; D62 Acute posthemorrhagic anemia; S06.0X1A Concussion with loss of consciousness of 30 minutes or less, initial encounter; S22.43XA Multiple fractures of ribs, bilateral, initial encounter for closed fracture; S32.029A Unspecified fracture of second lumbar vertebra, initial encounter for closed fracture; S32.039A Unspecified fracture of third lumbar vertebra, initial encounter for closed fracture; S32.049A Unspecified fracture of fourth lumbar vertebra, initial encounter for closed fracture; S05.12XA Contusion of eyeball and orbital tissues, left eye, initial encounter; Y08.89XA Assault by other specified means, initial encounter; Y92.410 Unspecified street and highway as the place of occurrence of the external cause; K70.30 Alcoholic cirrhosis of liver without ascites; K31.89 Other diseases of stomach and duodenum; F10.20 Alcohol dependence, uncomplicated; K27.9 Peptic ulcer, site unspecified, unspecified as acute or chronic, without hemorrhage or perforation; I86.4 Gastric varices; I86.8 Varicose veins of other specified sites; D68.0 Von Willebrand disease; C88.0 Waldenstrom macroglobulinemia; K59.09 Other constipation; I10 Essential (primary) hypertension; D63.8 Anemia in other chronic diseases classified elsewhere; D69.59 Other secondary thrombocytopenia; F32.9 Major depressive disorder, single episode, unspecified; R91.8 Other nonspecific abnormal finding of lung field; R19.7 Diarrhea, unspecified; F19.10 Other psychoactive substance abuse, uncomplicated; B19.20 Unspecified viral hepatitis C without hepatic coma; I73.9 Peripheral vascular disease, unspecified; Z85.828 Personal history of other malignant neoplasm of skin
CPT/HCPCS: 70450; 71020; 71250; 74177; 80048; 80053; 81003; 83690; 83735; 85014; 85018; 85025; 85027; 85610; 85730; 86850; 86900; 86901; 87902 90; 93005; 99281; 99284; C9113; G0480; J2354; J2405; J3411; J3480; J7030; J7050; J7120

== ENCOUNTER 2016-08-09 23:25 | Emergency (ER) | payer OTHER ==
[~2016-08-09] VITALS: Ht 177.8 cm; Wt 89.3 kg
[~2016-08-09 23:25] MED LIST changes: +AMITRIPTYLINE H10 MG PO; +TENORMIN25 MG PO; +Thiamine,Vitamin B1 PO
[2016-08-10 00:19] LABS: HEMATOCRIT 30.2 % (38.0-50.0); MCH 27.9 PG (29.0-34.0); MCHC 32.5 G/DL (30.0-36.0); MEAN PLAT.VOLUME 10.9 uM^3 (9.0-12.4); PLATELET COUNT 88 K/uL (156-360); RBC DIS.WIDTH-CV 19.9 % (11.8-14.6); RBC DIS.WIDTH-SD 61.8 % (39-53); RED BLOOD COUNT 3.51 M/uL (4.00-5.50); WHITE BLOOD COUNT 3.8 K/uL (4.1-10.2)
[2016-08-10 00:37] LABS: INTER. NORMALIZED RATIO 1.4; PTT 39.9 (25-32)
[2016-08-10 00:58] LABS: CHLORIDE 108 mEq/L (99-109); POTASSIUM 3.5 mEq/L (3.7-5.4)
[2016-08-10 00:59] LABS: SODIUM 144 mEq/L (136-147)
[2016-08-10 01:00] LABS: GLUCOSE 143 mg/dL (70-99)
[2016-08-10 01:01] LABS: ANION GAP 13 MEQ/L (2-14)
[2016-08-10 01:02] LABS: TOTAL BILIRUBIN 1.9 mg/dL (0.0-1.0)
[2016-08-10 01:03] LABS: ALKALINE PHOSPHATASE 134 IU/L (3-129); SERUM ETHYL ALCOHOL 367 mg/dL
[2016-08-10 01:04] LABS: GFR ESTIMATE (CALCULATED) > 59 mL/min/
[2016-08-10 01:05] LABS: UREA NITROGEN (BUN) 5 mg/dL (9-23)
[2016-08-10 03:25] VITALS: BP 104/66
== END 2016-08-10 03:27 | disposition home or self-care (01) ==
LOC: EME → EDBD 23:25 → EME 08-10 03:27
PROVIDERS: Emergency Medicine
DX: R04.0 Epistaxis (principal); F10.129 Alcohol abuse with intoxication, unspecified; Y90.8 Blood alcohol level of 240 mg/100 ml or more; I10 Essential (primary) hypertension; Z86.19 Personal history of other infectious and parasitic diseases; Z83.2 Family history of diseases of the blood and blood-forming organs and certain disorders involving the immune mechanism
CPT/HCPCS: 80053; 85027; 85610; 85730; 99281; 99284; G0480; J7030

== ENCOUNTER 2016-08-22 13:34 | Inpatient (IN) | payer OTHER ==
[2016-08-22 17:26] VITALS: BP 103/59
[2016-08-22 23:29] VITALS: BP 110/64
[2016-08-23 07:27] VITALS: BP 93/62
[2016-08-23 07:45] LABS: HEMATOCRIT 26.2 % (38.0-50.0); MCHC 30.5 G/DL (30.0-36.0); MEAN PLAT.VOLUME 11.1 uM^3 (9.0-12.4); RBC DIS.WIDTH-CV 19.5 % (11.8-14.6); RBC DIS.WIDTH-SD 66.4 % (39-53); RED BLOOD COUNT 2.86 M/uL (4.00-5.50)
[2016-08-23 07:48] LABS: MCV 91.6 FL (86-99); PLATELET COUNT 91 K/uL (156-360); WHITE BLOOD COUNT 2.9 K/uL (4.1-10.2)
[2016-08-23 10:38] LABS: ALKALINE PHOSPHATASE 90 IU/L (3-129); ANION GAP 9 MEQ/L (2-14); CHLORIDE 106 MEQ/L (99-109); GFR ESTIMATE (CALCULATED) > 59 mL/min/; GLUCOSE 102 mg/dL (70-99); SAMPLE HEMOLYSIS CHECK 0; SAMPLE ICTERIC CHECK 0; SAMPLE LIPEMIA CHECK 0; SODIUM 139 MEQ/L (136-147); TOTAL BILIRUBIN 2.1 MG/DL (0.0-1.0); UREA NITROGEN (BUN) 5 mg/dL (9-23)
[2016-08-23 10:43] VITALS: BP 94/53
[2016-08-23 11:07] VITALS: BP 100/58
[2016-08-23 12:12] VITALS: BP 102/58
[2016-08-23 12:58] VITALS: BP 114/58
[2016-08-23 14:46] LABS: PLAT.SUFFICIENCY ADEQUATE
[2016-08-23 16:05] VITALS: BP 89/63
[2016-08-24] VITALS: BP 90/54
[2016-08-24 08:11] LABS: EOSINOPHIL (%) 3.5 % (0-5); EOSINOPHIL COUNT 0.1 K/uL (0-0.3); HEMATOCRIT 25.5 % (38.0-50.0); LYMPHOCYTE COUNT 0.8 K/uL (1.0-2.8); MCHC 30.6 G/DL (30.0-36.0); MCV 91.4 FL (86-99); MEAN PLAT.VOLUME 11.8 uM^3 (9.0-12.4); MONOCYTE (%) 24.7 % (3-12); MONOCYTE COUNT 0.6 K/uL (0-0.8); NEUTROPHIL (%) 38.6 % (45-76); PLATELET COUNT 104 K/uL (156-360); RBC DIS.WIDTH-CV 19.4 % (11.8-14.6); RED BLOOD COUNT 2.79 M/uL (4.00-5.50); WHITE BLOOD COUNT 2.6 K/uL (4.1-10.2)
[2016-08-24 08:50] LABS: ANION GAP 7 MEQ/L (2-14); CHLORIDE 103 MEQ/L (99-109); GFR ESTIMATE (CALCULATED) > 59 mL/min/; POTASSIUM 3.9 MEQ/L (3.7-5.4); SAMPLE HEMOLYSIS CHECK 0; SAMPLE ICTERIC CHECK 0; SAMPLE LIPEMIA CHECK 0; SODIUM 133 MEQ/L (136-147); UREA NITROGEN (BUN) 5 mg/dL (9-23)
[2016-08-24 09:10] LABS: GLUCOSE 158 mg/dL (70-99)
[2016-08-24 15:48] VITALS: BP 100/57
[2016-08-24 16:00] VITALS: BP 124/82
[2016-08-24 16:12] VITALS: BP 99/52
[2016-08-24 16:30] VITALS: BP 97/52
[2016-08-24 18:13] VITALS: BP 133/75
[2016-08-25 00:39] VITALS: BP 99/53
[2016-08-25 06:16] LABS: HEMATOCRIT 29.8 % (38.0-50.0); MCH 27.8 PG (29.0-34.0); MCHC 31.2 G/DL (30.0-36.0); MCV 89.2 FL (86-99); MEAN PLAT.VOLUME 10.6 uM^3 (9.0-12.4); PLATELET COUNT 111 K/uL (156-360); RBC DIS.WIDTH-CV 18.6 % (11.8-14.6); RBC DIS.WIDTH-SD 61.2 % (39-53); RED BLOOD COUNT 3.34 M/uL (4.00-5.50); WHITE BLOOD COUNT 3.2 K/uL (4.1-10.2)
[2016-08-25 06:51] LABS: ALKALINE PHOSPHATASE 102 IU/L (3-129); ANION GAP 7 MEQ/L (2-14); CHLORIDE 105 MEQ/L (99-109); GFR ESTIMATE (CALCULATED) > 59 mL/min/; POTASSIUM 3.9 MEQ/L (3.7-5.4); SAMPLE HEMOLYSIS CHECK 0; SAMPLE ICTERIC CHECK 0; SAMPLE LIPEMIA CHECK 0; SODIUM 135 MEQ/L (136-147); TOTAL BILIRUBIN 2.5 MG/DL (0.0-1.0); UREA NITROGEN (BUN) 5 mg/dL (9-23)
[2016-08-25 06:59] LABS: GLUCOSE 115 mg/dL (70-99)
[2016-08-25 07:12] LABS: ABS NEUTROPHIL COUNT 1.4; ANISOCYTOSIS 1+; BAND NEUTROPHILS 3.6 % (0-8.0); BASOPHILS 5.4 %; EOSINOPHIL ABS CT 0.2; EOSINOPHILS 7.3 % (0-5.0); INSTRUMENT ABS NEUTROPHIL CT 1.3 K/uL; LYMPHOCYTES 26.4 % (15.0-45.0); MACROCYTES 1+; PLAT.SUFFICIENCY DECREASED; POIKILOCYTOSIS 1+; POLYCHROMASIA 1+; TOX.VACUOLIZATION 1+
[2016-08-25 07:24] VITALS: BP 100/57
[2016-08-25] MEDS ORDERED: CEPHALEXIN500 MG PO (08:56)
[2016-08-25 16:43] LABS: Flow Number of Markers 22 (()); Flow Spec Viability 95 % (()); Flow Specimen Type BONE MARROW (()); MISCELLANEOUS REFERRAL+ FLEXITEST 1 (())
== END 2016-08-25 12:14 | disposition home health service (06) | DRG 813 ==
LOC: 5EAST 13:34
PROVIDERS: Hospitalist; Internal Medicine Hematology & Oncology
PROC: 30233R1 Transfusion of Nonautologous Platelets into Peripheral Vein, Percutaneous Approach (ICD-10-PCS; principal; 2016-08-23)
PROC: 07DR3ZX Extraction of Iliac Bone Marrow, Percutaneous Approach, Diagnostic (ICD-10-PCS; principal; 2016-08-23)
PROC: 0H90XZZ Drainage of Scalp Skin, External Approach (ICD-10-PCS; 2016-08-24)
PROC: 0H9CXZZ Drainage of Left Upper Arm Skin, External Approach (ICD-10-PCS; 2016-08-24)
PROC: 30233N1 Transfusion of Nonautologous Red Blood Cells into Peripheral Vein, Percutaneous Approach (ICD-10-PCS; 2016-08-24)
DX: D68.0 Von Willebrand disease (principal); C83.80 Other non-follicular lymphoma, unspecified site; F10.20 Alcohol dependence, uncomplicated; K76.6 Portal hypertension; K70.30 Alcoholic cirrhosis of liver without ascites; K72.90 Hepatic failure, unspecified without coma; B18.2 Chronic viral hepatitis C; F07.81 Postconcussional syndrome; L76.31 Postprocedural hematoma of skin and subcutaneous tissue following a dermatologic procedure; Y84.8 Other medical procedures as the cause of abnormal reaction of the patient, or of later complication, without mention of misadventure at the time of the procedure; T81.4XXA Infection following a procedure, initial encounter; B99.9 Unspecified infectious disease; L08.9 Local infection of the skin and subcutaneous tissue, unspecified; C88.0 Waldenstrom macroglobulinemia; D61.818 Other pancytopenia
CPT/HCPCS: 71111; 77012; 80048; 80053; 85007; 85025; 85027; 85999; 86870; 86900; 86901; 86920; 87070; 87075; 87076; 87077; 87147; 87186; 87205; 88184 90; 88185 90; 88189 90; 88271 90; 88271 91; 88275 90; 88275 91; J2597; J3010; J7050; P9016; P9035

== ENCOUNTER 2016-08-27 19:21 | Emergency (ER) | payer OTHER ==
[~2016-08-27 19:21] MED LIST changes: +CEPHALEXIN500 MG PO
[2016-08-27 19:44] LABS: BASOPHIL COUNT 0.1 K/uL (0-0.1); EOSINOPHIL (%) 3.5 % (0-5); EOSINOPHIL COUNT 0.2 K/uL (0-0.3); HEMATOCRIT 32.2 % (38.0-50.0); IMMATURE GRANULOCYTE (%) 0.2 % (0.0-0.7); INSTRUMENT ABS NEUTROPHIL CT 1.6 K/uL; LYMPHOCYTE COUNT 1.8 K/uL (1.0-2.8); MCHC 31.7 G/DL (30.0-36.0); MCV 88.5 FL (86-99); MEAN PLAT.VOLUME 10.2 uM^3 (9.0-12.4); MONOCYTE (%) 15.3 % (3-12); MONOCYTE COUNT 0.7 K/uL (0-0.8); NEUTROPHIL (%) 36.9 % (45-76); NEUTROPHIL COUNT 1.6 K/uL (1.8-6.4); PLATELET COUNT 171 K/uL (156-360); RBC DIS.WIDTH-CV 18.8 % (11.8-14.6); RBC DIS.WIDTH-SD 61.5 % (39-53); RED BLOOD COUNT 3.64 M/uL (4.00-5.50); WHITE BLOOD COUNT 4.3 K/uL (4.1-10.2)
[2016-08-27 20:14] LABS: AMYLASE 58 IU/L (1-118); CHLORIDE 110 mEq/L (99-109); POTASSIUM 3.9 mEq/L (3.7-5.4)
[2016-08-27 20:15] LABS: GLUCOSE 119 mg/dL (70-99); SODIUM 142 mEq/L (136-147)
[2016-08-27 20:17] LABS: ANION GAP 9 MEQ/L (2-14)
[2016-08-27 20:18] LABS: SERUM ETHYL ALCOHOL 415 mg/dL
[2016-08-27 20:19] LABS: GFR ESTIMATE (CALCULATED) > 59 mL/min/
[2016-08-27 20:20] LABS: UREA NITROGEN (BUN) 8 mg/dL (9-23)
[2016-08-27 20:22] LABS: LIPASE 36 U/L (1.0-51.0)
[2016-08-27] MEDS ORDERED: KEFLEX500 MG PO (23:13)
[2016-08-27 23:42] LABS: ADD MIUA? NO; BILIRUBIN NEGATIVE; BLOOD NEGATIVE; COLOR YELLOW ((YELLOW)); GLUCOSE (STRIP) NEGATIVE; KETONES NEGATIVE; LEUKOCYTES NEGATIVE; NITRITE NEGATIVE; PROTEIN (STRIP) NEGATIVE; SPECIFIC GRAVITY 1.017 (1.000-1.030); UCUL ADDED? NO; UROBILINOGEN 0.2 MG/DL (0.2-1.0)
[2016-08-28 00:25] LABS: AMPHETAMINE NEGATIVE (500 ng/mL); BENZODIAZEPINES PRESUMPTIVE POSITIVE (150 ng/mL); COCAINE NEGATIVE (150 ng/mL); METHAMPHETAMINE NEGATIVE (500 ng/mL); OPIATES (MORPHINE) NEGATIVE (100 ng/mL); PHENCYCLIDINE NEGATIVE (25 ng/mL); THC CANNABINOIDS NEGATIVE (50 ng/mL); TRICYCLIC ANTIDEPRESSANTS NEGATIVE (300 ng/mL)
[2016-08-28 00:26] LABS: ADD MEDTOX COMMENT Y; BARBITURATES NEGATIVE (200 ng/mL); INTERNAL CONTROLS VALID? YES; METHADONE NEGATIVE (200 ng/mL); OXYCODONE NEGATIVE (100 ng/mL); PROPOXYPHENE NEGATIVE (300 ng/mL)
[2016-08-28 01:39] LABS: BENZODIAZEPINES, URINE SCREEN POSITIVE (200 ng/mL)
== END 2016-08-28 09:03 | disposition home or self-care (01) ==
LOC: TRA 19:21
PROVIDERS: Emergency Medicine
PROC: 2Y41X5Z Packing of Nasal Region using Packing Material (ICD-10-PCS; principal; 2016-08-27)
DX: S02.2XXA Fracture of nasal bones, initial encounter for closed fracture (principal); S00.91XA Abrasion of unspecified part of head, initial encounter; V09.20XA Pedestrian injured in traffic accident involving unspecified motor vehicles, initial encounter; Y93.9 Activity, unspecified; R04.0 Epistaxis; D66 Hereditary factor VIII deficiency; D68.0 Von Willebrand disease; C85.90 Non-Hodgkin lymphoma, unspecified, unspecified site; K74.60 Unspecified cirrhosis of liver; I11.0 Hypertensive heart disease with heart failure; I50.9 Heart failure, unspecified; F10.129 Alcohol abuse with intoxication, unspecified; M54.2 Cervicalgia; M25.552 Pain in left hip; M79.602 Pain in left arm
CPT/HCPCS: 70450; 70486; 71010; 72125; 73060; 73070; 73501; 80048; 81003; 82150; 83690; 84999; 85025; 86900; 86901; 99281; 99284; G0480; J7030

== ENCOUNTER 2016-09-02 16:29 | Emergency (ER) | payer OTHER ==
[~2016-09-02] VITALS: Ht 177.8 cm; Wt 83.0 kg
[~2016-09-02 16:29] MED LIST changes: +KEFLEX500 MG PO
[2016-09-02] MEDS ORDERED: PROTONIX40 MG PO (17:15)
[2016-09-02] MEDS ORDERED: Thiamine,Vitamin B1 PO (17:19)
[2016-09-02 18:15] LABS: HEMATOCRIT 29.8 % (38.0-50.0); MCH 28.4 PG (29.0-34.0); MCHC 32.9 G/DL (30.0-36.0); MCV 86.4 FL (86-99); RBC DIS.WIDTH-CV 17.4 % (11.8-14.6); RBC DIS.WIDTH-SD 54.9 % (39-53); RED BLOOD COUNT 3.45 M/uL (4.00-5.50)
[2016-09-02 18:21] LABS: CHLORIDE 102 mEq/L (99-109); POTASSIUM 3.2 mEq/L (3.7-5.4)
[2016-09-02 18:24] LABS: GLUCOSE 114 mg/dL (70-99)
[2016-09-02 18:25] LABS: ANION GAP 13 MEQ/L (2-14); TOTAL BILIRUBIN 3.2 mg/dL (0.0-1.0)
[2016-09-02 18:26] LABS: INTER. NORMALIZED RATIO 1.4; PROTHROMBIN TIME 14.4 (9.2-11.2); PTT 41.5 (25-32); SODIUM 134 mEq/L (136-147)
[2016-09-02 18:27] LABS: ALKALINE PHOSPHATASE 108 IU/L (3-129); GFR ESTIMATE (CALCULATED) > 59 mL/min/
[2016-09-02 18:28] LABS: UREA NITROGEN (BUN) 7 mg/dL (9-23)
[2016-09-02 18:50] LABS: MEAN PLAT.VOLUME 10.4 uM^3 (9.0-12.4); PLAT.SUFFICIENCY DECREASED
[2016-09-02 19:16] LABS: PLATELET COUNT 93 K/uL (156-360)
[2016-09-02 21:34] LABS: SERUM ETHYL ALCOHOL 315 mg/dL
[2016-09-03 04:17] VITALS: BP 105/66
== END 2016-09-03 04:18 | disposition home or self-care (01) ==
LOC: EME 16:29
PROVIDERS: Nurse Practitioner Family
DX: F10.129 Alcohol abuse with intoxication, unspecified (principal); Y90.8 Blood alcohol level of 240 mg/100 ml or more; F32.9 Major depressive disorder, single episode, unspecified; D53.9 Nutritional anemia, unspecified; E86.0 Dehydration; R79.89 Other specified abnormal findings of blood chemistry; I10 Essential (primary) hypertension; B19.20 Unspecified viral hepatitis C without hepatic coma; K74.60 Unspecified cirrhosis of liver; C85.90 Non-Hodgkin lymphoma, unspecified, unspecified site; D68.0 Von Willebrand disease
CPT/HCPCS: 80053; 85027; 85610; 85730; 90839; 99281; 99285; G0480; J3411; J3475; J7030

== ENCOUNTER 2016-09-17 13:23 | Observation (INO) | payer OTHER ==
[~2016-09-17] VITALS: Ht 177.8 cm; Wt 82.6 kg
[2016-09-17 16:58] LABS: INTER. NORMALIZED RATIO 1.3; PROTHROMBIN TIME 13.8 (9.2-11.2); PTT 39.4 (25-32)
[2016-09-17 17:01] LABS: MCH 28.1 PG (29.0-34.0); MCHC 31.5 G/DL (30.0-36.0); MCV 89.4 FL (86-99); RBC DIS.WIDTH-CV 18.8 % (11.8-14.6); RBC DIS.WIDTH-SD 62.8 % (39-53); RED BLOOD COUNT 3.02 M/uL (4.00-5.50)
[2016-09-17 17:23] LABS: WHITE BLOOD COUNT 2.3 K/uL (4.1-10.2)
[2016-09-17 17:55] LABS: IMM.PLATELET FRACTION 4.3 (1-7); MEAN PLAT.VOLUME 10.5 uM^3 (9.0-12.4); PLATELET COUNT 50 K/uL (156-360)
[2016-09-17 18:08] LABS: CHLORIDE 107 mEq/L (99-109)
[2016-09-17 18:10] LABS: GLUCOSE 121 mg/dL (70-99)
[2016-09-17 18:11] LABS: ANION GAP 9 MEQ/L (2-14)
[2016-09-17 18:12] LABS: TOTAL BILIRUBIN 2.3 mg/dL (0.0-1.0)
[2016-09-17 18:13] LABS: ALKALINE PHOSPHATASE 126 IU/L (3-129); GFR ESTIMATE (CALCULATED) > 59 mL/min/; POTASSIUM 3.8 mEq/L (3.7-5.4); SODIUM 139 mEq/L (136-147)
[2016-09-17 18:15] LABS: UREA NITROGEN (BUN) 4 mg/dL (9-23)
[2016-09-17 22:18] VITALS: BP 142/72
[2016-09-17 22:33] VITALS: BP 138/84
[2016-09-17 22:40] VITALS: BP 156/74
[2016-09-17 23:22] VITALS: BP 156/74
[2016-09-18] VITALS (16 sets, daily range): BP systolic 138–157; BP diastolic 71–86
[2016-09-18 08:13] LABS: HEMATOCRIT 30.3 % (38.0-50.0); MCH 28.8 PG (29.0-34.0); MCHC 31.7 G/DL (30.0-36.0); RBC DIS.WIDTH-CV 17.6 % (11.8-14.6); RBC DIS.WIDTH-SD 58.6 % (39-53); RED BLOOD COUNT 3.33 M/uL (4.00-5.50); WHITE BLOOD COUNT 2.1 K/uL (4.1-10.2)
[2016-09-18 08:36] LABS: ANION GAP 10 MEQ/L (2-14); CHLORIDE 101 MEQ/L (99-109); GFR ESTIMATE (CALCULATED) > 59 mL/min/; GLUCOSE 122 mg/dL (70-99); POTASSIUM 3.9 MEQ/L (3.7-5.4); SAMPLE HEMOLYSIS CHECK 1; SAMPLE ICTERIC CHECK 0; SAMPLE LIPEMIA CHECK 0; SODIUM 134 MEQ/L (136-147); UREA NITROGEN (BUN) 5 mg/dL (9-23)
[2016-09-18 08:44] LABS: IMM.PLATELET FRACTION 5.7 (1-7); PLAT.SUFFICIENCY DECREASED; PLATELET COUNT 48 K/uL (156-360)
[2016-09-18] MEDS ORDERED: FOLIC ACID1 MG PO (10:59)
[2016-09-18] MEDS ORDERED: TRAMADOL HCL50 MG PO (11:00)
[2016-09-18] MEDS ORDERED: ENULOSE10 GM/15 M PO (11:01)
[2016-09-18] MEDS ORDERED: PROTONIX40 MG PO (11:03)
[2016-09-19 02:44] VITALS: BP 131/63
[2016-09-19 08:10] LABS: BASOPHIL COUNT 0.1 K/uL (0-0.1); EOSINOPHIL (%) 1.7 % (0-5); EOSINOPHIL COUNT 0.1 K/uL (0-0.3); HEMATOCRIT 34.3 % (38.0-50.0); IMMATURE GRANULOCYTE (%) 0.2 % (0.0-0.7); INSTRUMENT ABS NEUTROPHIL CT 2.6 K/uL; LYMPHOCYTE COUNT 1.3 K/uL (1.0-2.8); MCH 29.1 PG (29.0-34.0); MCHC 32.7 G/DL (30.0-36.0); MCV 89.1 FL (86-99); MEAN PLAT.VOLUME 11.5 uM^3 (9.0-12.4); MONOCYTE (%) 24.2 % (3-12); MONOCYTE COUNT 1.3 K/uL (0-0.8); NEUTROPHIL (%) 48.2 % (45-76); NEUTROPHIL COUNT 2.6 K/uL (1.8-6.4); RBC DIS.WIDTH-CV 17.8 % (11.8-14.6); RBC DIS.WIDTH-SD 57.3 % (39-53); RED BLOOD COUNT 3.85 M/uL (4.00-5.50)
[2016-09-19 08:15] LABS: PLATELET COUNT 73 K/uL (156-360); WHITE BLOOD COUNT 5.3 K/uL (4.1-10.2)
[2016-09-19 08:23] LABS: ANION GAP 10 MEQ/L (2-14); CHLORIDE 94 MEQ/L (99-109); GFR ESTIMATE (CALCULATED) > 59 mL/min/; GLUCOSE 103 mg/dL (70-99); POTASSIUM 3.6 MEQ/L (3.7-5.4); SAMPLE HEMOLYSIS CHECK 0; SAMPLE ICTERIC CHECK 1; SAMPLE LIPEMIA CHECK 0; SODIUM 128 MEQ/L (136-147); UREA NITROGEN (BUN) 4 mg/dL (9-23)
[2016-09-19 08:30] VITALS: BP 132/74
[2016-09-19 11:21] VITALS: BP 118/72
== END 2016-09-19 14:33 | disposition home or self-care (01) ==
LOC: EME 13:23 → 5WEST 19:40 → EDOF 19:40 → 5WEST 22:47
PROVIDERS: Hospitalist; Nurse Practitioner Adult Health; Physician Assistant
PROC: 0W3Q7ZZ Control Bleeding in Respiratory Tract, Via Natural or Artificial Opening (ICD-10-PCS; principal; 2016-09-17)
PROC: 30233R1 Transfusion of Nonautologous Platelets into Peripheral Vein, Percutaneous Approach (ICD-10-PCS; 2016-09-17)
PROC: 30233N1 Transfusion of Nonautologous Red Blood Cells into Peripheral Vein, Percutaneous Approach (ICD-10-PCS; 2016-09-18)
DX: R04.0 Epistaxis (principal); D61.818 Other pancytopenia; K70.30 Alcoholic cirrhosis of liver without ascites; Z85.72 Personal history of non-Hodgkin lymphomas; K76.6 Portal hypertension; B19.20 Unspecified viral hepatitis C without hepatic coma; D68.0 Von Willebrand disease; F10.21 Alcohol dependence, in remission
CPT/HCPCS: 80048; 80053; 85025; 85027; 85610; 85730; 86900; 86901; 86920; 93005; 99281; 99285; G0378; J2597; J3010; J7050; P9016; P9035

== ENCOUNTER 2016-10-04 21:58 | Emergency (ER) | payer OTHER ==
[~2016-10-04] VITALS: Ht 177.8 cm; Wt 83.9 kg
[2016-10-05 01:35] LABS: EOSINOPHIL (%) 1.9 % (0-5); EOSINOPHIL COUNT 0.1 K/uL (0-0.3); HEMATOCRIT 33.6 % (38.0-50.0); IMMATURE GRANULOCYTE (%) 0.5 % (0.0-0.7); INSTRUMENT ABS NEUTROPHIL CT 1.8 K/uL; LYMPHOCYTE COUNT 1.3 K/uL (1.0-2.8); MCH 27.9 PG (29.0-34.0); MCHC 31.8 G/DL (30.0-36.0); MCV 87.7 FL (86-99); MONOCYTE (%) 12.2 % (3-12); MONOCYTE COUNT 0.5 K/uL (0-0.8); NEUTROPHIL (%) 48.4 % (45-76); NEUTROPHIL COUNT 1.8 K/uL (1.8-6.4); RBC DIS.WIDTH-CV 18.5 % (11.8-14.6); RBC DIS.WIDTH-SD 59.4 % (39-53); RED BLOOD COUNT 3.83 M/uL (4.00-5.50); WHITE BLOOD COUNT 3.7 K/uL (4.1-10.2)
[2016-10-05 02:19] LABS: IMM.PLATELET FRACTION 4.8 (1-7); MEAN PLAT.VOLUME 10.2 uM^3 (9.0-12.4); PLAT.SUFFICIENCY VERY DECREASED; PLATELET COUNT 50 K/uL (156-360)
[2016-10-05 02:47] VITALS: BP 115/82
== END 2016-10-05 02:57 | disposition home or self-care (01) ==
LOC: EME → EDBD 21:58 → EME 10-05 02:57
PROVIDERS: Physician Assistant
PROC: 2Y41X5Z Packing of Nasal Region using Packing Material (ICD-10-PCS; principal; 2016-10-05)
DX: R04.0 Epistaxis (principal); I10 Essential (primary) hypertension
CPT/HCPCS: 85025; 99281; 99284

== ENCOUNTER 2016-10-07 16:39 | Inpatient (IN) | payer OTHER ==
[~2016-10-07] VITALS: Ht 177.8 cm; Wt 82.7 kg
[2016-10-07 20:52] LABS: HEMATOCRIT 34.5 % (38.0-50.0); MCH 27.8 PG (29.0-34.0); MCHC 31.9 G/DL (30.0-36.0); MCV 87.1 FL (86-99); RBC DIS.WIDTH-SD 57.7 % (39-53); RED BLOOD COUNT 3.96 M/uL (4.00-5.50); WHITE BLOOD COUNT 3.9 K/uL (4.1-10.2)
[2016-10-07 21:34] LABS: INTER. NORMALIZED RATIO 1.3; PROTHROMBIN TIME 13.1 (9.2-11.2); PTT 40.1 (25-32)
[2016-10-07 22:10] LABS: IMM.PLATELET FRACTION 6.3 (1-7); MEAN PLAT.VOLUME 11.4 uM^3 (9.0-12.4); PLAT.SUFFICIENCY VERY DECREASED; PLATELET COUNT 40 K/uL (156-360)
[2016-10-08] VITALS (12 sets, daily range): BP systolic 110–144; BP diastolic 54–91
[2016-10-08 00:20] LABS: CHLORIDE 105 mEq/L (99-109); POTASSIUM 3.4 mEq/L (3.7-5.4); SODIUM 142 mEq/L (136-147)
[2016-10-08 00:22] LABS: GLUCOSE 187 mg/dL (70-99)
[2016-10-08 00:23] LABS: ANION GAP 13 MEQ/L (2-14)
[2016-10-08 00:24] LABS: TOTAL BILIRUBIN 3.1 mg/dL (0.0-1.0)
[2016-10-08 00:25] LABS: ALKALINE PHOSPHATASE 131 IU/L (3-129)
[2016-10-08 00:26] LABS: GFR ESTIMATE (CALCULATED) > 59 mL/min/
[2016-10-08 00:27] LABS: UREA NITROGEN (BUN) 4 mg/dL (9-23)
[2016-10-08] MEDS ORDERED: NASAL DECONGEST30 ML BOTH NARES (00:29)
[2016-10-08 02:48] LABS: MAGNESIUM 1.9 mg/dL (1.3-2.7)
[2016-10-08 06:37] LABS: HEMATOCRIT 28.1 % (38.0-50.0); MCH 28.6 PG (29.0-34.0); MCHC 32.7 G/DL (30.0-36.0); MCV 87.3 FL (86-99); RBC DIS.WIDTH-CV 18.2 % (11.8-14.6); RBC DIS.WIDTH-SD 58.3 % (39-53); RED BLOOD COUNT 3.22 M/uL (4.00-5.50); WHITE BLOOD COUNT 3.3 K/uL (4.1-10.2)
[2016-10-08 06:50] LABS: CHLORIDE 107 mEq/L (99-109); POTASSIUM 3.5 mEq/L (3.7-5.4); SODIUM 143 mEq/L (136-147)
[2016-10-08 06:54] LABS: ANION GAP 14 MEQ/L (2-14); TOTAL BILIRUBIN 2.5 mg/dL (0.0-1.0)
[2016-10-08 06:56] LABS: ALKALINE PHOSPHATASE 109 IU/L (3-129); GFR ESTIMATE (CALCULATED) > 59 mL/min/
[2016-10-08 06:57] LABS: UREA NITROGEN (BUN) 4 mg/dL (9-23)
[2016-10-08 07:02] LABS: GLUCOSE 74 mg/dL (70-99)
[2016-10-08 07:39] LABS: IMM.PLATELET FRACTION 4.6 (1-7); MEAN PLAT.VOLUME 10.3 uM^3 (9.0-12.4); PLAT.SUFFICIENCY DECREASED; PLATELET COUNT 36 K/uL (156-360)
[2016-10-08 13:05] LABS: POINT-OF-CARE METER ID UU13113807
[2016-10-08 14:26] LABS: HEMATOCRIT 27.8 % (38.0-50.0); MCH 28.2 PG (29.0-34.0); MCHC 31.3 G/DL (30.0-36.0); RBC DIS.WIDTH-SD 59.1 % (39-53); RED BLOOD COUNT 3.09 M/uL (4.00-5.50); WHITE BLOOD COUNT 2.1 K/uL (4.1-10.2)
[2016-10-08 14:40] LABS: EOSINOPHIL (%) 2.9 % (0-5); EOSINOPHIL COUNT 0.1 K/uL (0-0.3); IMMATURE GRANULOCYTE (%) 0.5 % (0.0-0.7); INSTRUMENT ABS NEUTROPHIL CT 1.2 K/uL; LYMPHOCYTE COUNT 0.5 K/uL (1.0-2.8); MONOCYTE COUNT 0.4 K/uL (0-0.8); NEUTROPHIL (%) 55.2 % (45-76); NEUTROPHIL COUNT 1.2 K/uL (1.8-6.4)
[2016-10-08 14:41] LABS: IMM.PLATELET FRACTION 6.9 (1-7)
[2016-10-08 14:43] LABS: PLAT.SUFFICIENCY VERY DECREASED; PLATELET COUNT 25 K/uL (156-360)
[2016-10-08 18:10] LABS: POINT-OF-CARE METER ID UU13113807
[2016-10-08 20:32] LABS: EOSINOPHIL (%) 1.4 % (0-5); HEMATOCRIT 26.4 % (38.0-50.0); IMMATURE GRANULOCYTE (%) 0.5 % (0.0-0.7); INSTRUMENT ABS NEUTROPHIL CT 1.2 K/uL; LYMPHOCYTE COUNT 0.4 K/uL (1.0-2.8); MCH 28.7 PG (29.0-34.0); MCHC 32.2 G/DL (30.0-36.0); MCV 89.2 FL (86-99); MONOCYTE (%) 21.3 % (3-12); MONOCYTE COUNT 0.5 K/uL (0-0.8); NEUTROPHIL (%) 56.4 % (45-76); NEUTROPHIL COUNT 1.2 K/uL (1.8-6.4); RBC DIS.WIDTH-CV 18.1 % (11.8-14.6); RBC DIS.WIDTH-SD 59.2 % (39-53); RED BLOOD COUNT 2.96 M/uL (4.00-5.50); WHITE BLOOD COUNT 2.2 K/uL (4.1-10.2)
[2016-10-08 21:47] LABS: HEMATOLOGY COMMENT 1 SN; PLAT.SUFFICIENCY DECREASED
[2016-10-08 21:49] LABS: IMM.PLATELET FRACTION 5.2 (1-7); MEAN PLAT.VOLUME 10.4 uM^3 (9.0-12.4); PLATELET COUNT 23 K/uL (156-360)
[2016-10-08 22:01] LABS: IMMUNOGLOBULIN A 127 MG/DL (40-350); IMMUNOGLOBULIN G 1318 MG/DL (650-1600)
[2016-10-08 22:06] LABS: IMMUNOGLOBULIN M 2839 MG/DL (50-300)
[2016-10-08 22:11] LABS: D-DIMER LATEX NEGATIVE
[2016-10-08 22:34] LABS: FIBRINOGEN 115 MG/DL (160-450)
[2016-10-08 23:22] LABS: SCHISTOCYTES RARE
[2016-10-09] VITALS (19 sets, daily range): BP systolic 130–155; BP diastolic 65–85
[2016-10-09 00:30] LABS: POINT-OF-CARE METER ID UU13113807
[2016-10-09 02:07] LABS: EOSINOPHIL (%) 1.2 % (0-5); HEMATOCRIT 27.1 % (38.0-50.0); IMMATURE GRANULOCYTE (%) 0.4 % (0.0-0.7); INSTRUMENT ABS NEUTROPHIL CT 1.5 K/uL; LYMPHOCYTE COUNT 0.5 K/uL (1.0-2.8); MCH 28.5 PG (29.0-34.0); MCHC 31.7 G/DL (30.0-36.0); MCV 89.7 FL (86-99); MONOCYTE (%) 15.8 % (3-12); MONOCYTE COUNT 0.4 K/uL (0-0.8); NEUTROPHIL (%) 61.1 % (45-76); NEUTROPHIL COUNT 1.5 K/uL (1.8-6.4); RBC DIS.WIDTH-CV 18.1 % (11.8-14.6); RBC DIS.WIDTH-SD 59.1 % (39-53); RED BLOOD COUNT 3.02 M/uL (4.00-5.50); WHITE BLOOD COUNT 2.4 K/uL (4.1-10.2)
[2016-10-09 03:03] LABS: IMM.PLATELET FRACTION 5.6 (1-7); MEAN PLAT.VOLUME 10.1 uM^3 (9.0-12.4); PLAT.SUFFICIENCY VERY DECREASED; PLATELET COUNT 29 K/uL (156-360)
[2016-10-09 06:37] LABS: POINT-OF-CARE METER ID UU13113807
[2016-10-09 10:47] LABS: EOSINOPHIL (%) 2.1 % (0-5); EOSINOPHIL COUNT 0.1 K/uL (0-0.3); HEMATOCRIT 27.4 % (38.0-50.0); IMMATURE GRANULOCYTE (%) 0.4 % (0.0-0.7); INSTRUMENT ABS NEUTROPHIL CT 1.3 K/uL; LYMPHOCYTE COUNT 0.5 K/uL (1.0-2.8); MCH 28.7 PG (29.0-34.0); MCHC 32.1 G/DL (30.0-36.0); MCV 89.3 FL (86-99); MONOCYTE (%) 20.2 % (3-12); MONOCYTE COUNT 0.5 K/uL (0-0.8); NEUTROPHIL (%) 54.5 % (45-76); NEUTROPHIL COUNT 1.3 K/uL (1.8-6.4); RBC DIS.WIDTH-CV 17.8 % (11.8-14.6); RBC DIS.WIDTH-SD 57.9 % (39-53); RED BLOOD COUNT 3.07 M/uL (4.00-5.50); WHITE BLOOD COUNT 2.3 K/uL (4.1-10.2)
[2016-10-09 10:49] LABS: ALKALINE PHOSPHATASE 91 IU/L (3-129); ANION GAP 9 MEQ/L (2-14); CHLORIDE 105 MEQ/L (99-109); GFR ESTIMATE (CALCULATED) > 59 mL/min/; POTASSIUM 3.3 MEQ/L (3.7-5.4); SAMPLE HEMOLYSIS CHECK 0; SAMPLE ICTERIC CHECK 1; SAMPLE LIPEMIA CHECK 0; SODIUM 138 MEQ/L (136-147); TOTAL BILIRUBIN 3.9 MG/DL (0.0-1.0); UREA NITROGEN (BUN) 11 mg/dL (9-23)
[2016-10-09 10:50] LABS: GLUCOSE 124 mg/dL (70-99)
[2016-10-09 12:25] LABS: POINT-OF-CARE METER ID UU13113807
[2016-10-09 13:21] LABS: IMM.PLATELET FRACTION 9.6 (1-7); MEAN PLAT.VOLUME 11.1 uM^3 (9.0-12.4)
[2016-10-09 13:38] LABS: PLATELET COUNT 20 K/uL (156-360)
[2016-10-09 16:52] LABS: POINT-OF-CARE METER ID UU13113807
[2016-10-09 18:30] LABS: EOSINOPHIL (%) 1.4 % (0-5); EOSINOPHIL COUNT 0.1 K/uL (0-0.3); HEMATOCRIT 28.7 % (38.0-50.0); IMM.PLATELET FRACTION 10.7 (1-7); IMMATURE GRANULOCYTE (%) 0.5 % (0.0-0.7); INSTRUMENT ABS NEUTROPHIL CT 2.4 K/uL; LYMPHOCYTE COUNT 0.6 K/uL (1.0-2.8); MCH 28.5 PG (29.0-34.0); MCHC 32.1 G/DL (30.0-36.0); MCV 88.9 FL (86-99); MONOCYTE (%) 17.1 % (3-12); MONOCYTE COUNT 0.6 K/uL (0-0.8); NEUTROPHIL (%) 65.3 % (45-76); NEUTROPHIL COUNT 2.4 K/uL (1.8-6.4); PLAT.SUFFICIENCY VERY DECREASED; PLATELET COUNT 21 K/uL (156-360); RBC DIS.WIDTH-CV 17.9 % (11.8-14.6); RBC DIS.WIDTH-SD 56.5 % (39-53); RED BLOOD COUNT 3.23 M/uL (4.00-5.50); WHITE BLOOD COUNT 3.7 K/uL (4.1-10.2)
[2016-10-09 21:19] LABS: POINT-OF-CARE METER ID UU13113807
[2016-10-09 21:48] LABS: EOSINOPHIL (%) 0.6 % (0-5); HEMATOCRIT 29.7 % (38.0-50.0); HEMATOLOGY COMMENT 1 SN; IMMATURE GRANULOCYTE (%) 1.2 % (0.0-0.7); INSTRUMENT ABS NEUTROPHIL CT 2.9 K/uL; LYMPHOCYTE COUNT 0.3 K/uL (1.0-2.8); MCH 29.5 PG (29.0-34.0); MCV 89.5 FL (86-99); MONOCYTE (%) 6.1 % (3-12); MONOCYTE COUNT 0.2 K/uL (0-0.8); NEUTROPHIL (%) 83.7 % (45-76); NEUTROPHIL COUNT 2.9 K/uL (1.8-6.4); PLAT.SUFFICIENCY DECREASED; RBC DIS.WIDTH-CV 18.3 % (11.8-14.6); RBC DIS.WIDTH-SD 58.3 % (39-53); RED BLOOD COUNT 3.32 M/uL (4.00-5.50); WHITE BLOOD COUNT 3.5 K/uL (4.1-10.2)
[2016-10-09 21:54] LABS: PLATELET COUNT 23 K/uL (156-360)
[2016-10-10 08:43] LABS: BASELINE PT 14.8 SEC (9.9-11.1); IMMEDIATE MIX PTT 31.5 SEC; PTT BASELINE 35.1 SEC (25-32)
[2016-10-10 10:32] LABS: 90 MINUTE INCUBATION PTT 32.7 SEC
[2016-10-10 23:28] LABS: DRVVT Mixing Study Interp Not Indicated (()); dRVVT Screen 35 sec (<=45)
[2016-10-11 00:02] LABS: ADD PTT REFLEX? Y; PTT-LA 48 sec (<=40)
== END 2016-10-10 00:39 | disposition short-term general hospital (02) | DRG 377 ==
LOC: EXP 16:39 → EME 16:39 → 4SOUTH 10-08 02:03 → EDOF 10-08 02:03 → 4SOUTH 10-08 11:04
PROVIDERS: Hospitalist; Internal Medicine; Internal Medicine Medical Oncology; Specialist
PROC: 30233N1 Transfusion of Nonautologous Red Blood Cells into Peripheral Vein, Percutaneous Approach (ICD-10-PCS; principal; 2016-10-09)
DX: K92.0 Hematemesis (principal); D65 Disseminated intravascular coagulation [defibrination syndrome]; D61.818 Other pancytopenia; D68.0 Von Willebrand disease; C88.0 Waldenstrom macroglobulinemia; C85.90 Non-Hodgkin lymphoma, unspecified, unspecified site; K76.6 Portal hypertension; K70.30 Alcoholic cirrhosis of liver without ascites; K72.10 Chronic hepatic failure without coma; F10.10 Alcohol abuse, uncomplicated; K57.30 Diverticulosis of large intestine without perforation or abscess without bleeding; K59.09 Other constipation; Z80.7 Family history of other malignant neoplasms of lymphoid, hematopoietic and related tissues; Z82.49 Family history of ischemic heart disease and other diseases of the circulatory system; Z85.828 Personal history of other malignant neoplasm of skin; F19.10 Other psychoactive substance abuse, uncomplicated; I11.0 Hypertensive heart disease with heart failure; I50.9 Heart failure, unspecified; F32.9 Major depressive disorder, single episode, unspecified; R04.0 Epistaxis; E87.6 Hypokalemia; D75.89 Other specified diseases of blood and blood-forming organs
CPT/HCPCS: 74176; 80053; 82607; 82728; 82746; 82784 90; 82948; 83010 90; 83615; 83735; 84466; 85014; 85018; 85025; 85025 91; 85027; 85378; 85384; 85597 90; 85610; 85611; 85613 90; 85730; 85730 90; 85732; 85810 90; 86900; 86901; 86920; 87902 90; 93970; 99281; 99285; C9113; G0480; J0696; J1100; J2354; J2405; J2597; J2765; J3411; J3480; J7030; J7050; P9016; P9017; P9035

== ENCOUNTER 2016-10-27 14:51 | Emergency (ER) | payer OTHER ==
[~2016-10-27] VITALS: Ht 177.8 cm; Wt 83.4 kg
[~2016-10-27 14:51] MED LIST changes: +NASAL DECONGEST30 ML BOTH NARES
[2016-10-27 16:26] LABS: EOSINOPHIL (%) 4.3 % (0-5); EOSINOPHIL COUNT 0.2 K/uL (0-0.3); HEMATOCRIT 27.8 % (38.0-50.0); IMMATURE GRANULOCYTE (%) 0.3 % (0.0-0.7); INSTRUMENT ABS NEUTROPHIL CT 1.6 K/uL; LYMPHOCYTE COUNT 1.3 K/uL (1.0-2.8); MCH 28.8 PG (29.0-34.0); MCHC 32.4 G/DL (30.0-36.0); MCV 89.1 FL (86-99); MEAN PLAT.VOLUME 11.2 uM^3 (9.0-12.4); MONOCYTE (%) 11.3 % (3-12); MONOCYTE COUNT 0.4 K/uL (0-0.8); NEUTROPHIL (%) 44.9 % (45-76); NEUTROPHIL COUNT 1.6 K/uL (1.8-6.4); PLATELET COUNT 99 K/uL (156-360); RBC DIS.WIDTH-CV 19.9 % (11.8-14.6); RBC DIS.WIDTH-SD 64.6 % (39-53); RED BLOOD COUNT 3.12 M/uL (4.00-5.50); WHITE BLOOD COUNT 3.5 K/uL (4.1-10.2)
[2016-10-27 16:33] LABS: CHLORIDE 105 mEq/L (99-109); POTASSIUM 3.7 mEq/L (3.7-5.4); SODIUM 136 mEq/L (136-147)
[2016-10-27 16:35] LABS: GLUCOSE 90 mg/dL (70-99)
[2016-10-27 16:36] LABS: ANION GAP 8 MEQ/L (2-14); INTER. NORMALIZED RATIO 1.5; PROTHROMBIN TIME 15.2 (9.2-11.2); PTT 46.4 (25-32)
[2016-10-27 16:37] LABS: TOTAL BILIRUBIN 1.6 mg/dL (0.0-1.0)
[2016-10-27 16:39] LABS: ALKALINE PHOSPHATASE 135 IU/L (3-129); GFR ESTIMATE (CALCULATED) > 59 mL/min/
[2016-10-27 16:40] LABS: UREA NITROGEN (BUN) 5 mg/dL (9-23)
[2016-10-27 20:43] VITALS: BP 101/54
== END 2016-10-27 20:58 | disposition short-term general hospital (02) ==
LOC: EME 14:51
PROVIDERS: Emergency Medicine
DX: K92.1 Melena (principal); B19.20 Unspecified viral hepatitis C without hepatic coma; K70.30 Alcoholic cirrhosis of liver without ascites; F10.20 Alcohol dependence, uncomplicated; D68.0 Von Willebrand disease; C88.0 Waldenstrom macroglobulinemia; I11.0 Hypertensive heart disease with heart failure; I50.9 Heart failure, unspecified
CPT/HCPCS: 80048; 80076; 85025; 85610; 85730; 86900; 86901; 86920; 99281; 99285; J7040

== ENCOUNTER 2016-10-31 18:31 | Emergency (ER) | payer OTHER ==
[~2016-10-31] VITALS: Ht 177.8 cm; Wt 83.4 kg
[2016-10-31 19:35] LABS: HEMATOCRIT 29.9 % (38.0-50.0); MCH 28.7 PG (29.0-34.0); MCHC 32.1 G/DL (30.0-36.0); MCV 89.5 FL (86-99); MEAN PLAT.VOLUME 10.1 uM^3 (9.0-12.4); PLATELET COUNT 87 K/uL (156-360); RBC DIS.WIDTH-CV 19.7 % (11.8-14.6); RBC DIS.WIDTH-SD 64.4 % (39-53); RED BLOOD COUNT 3.34 M/uL (4.00-5.50); WHITE BLOOD COUNT 3.5 K/uL (4.1-10.2)
[2016-10-31 19:49] LABS: CHLORIDE 113 mEq/L (99-109); POTASSIUM 3.4 mEq/L (3.7-5.4)
[2016-10-31 19:50] LABS: SODIUM 150 mEq/L (136-147)
[2016-10-31 19:51] LABS: GLUCOSE 127 mg/dL (70-99)
[2016-10-31 19:52] LABS: ANION GAP 11 MEQ/L (2-14)
[2016-10-31 19:55] LABS: GFR ESTIMATE (CALCULATED) > 59 mL/min/
[2016-10-31 19:56] LABS: UREA NITROGEN (BUN) 6 mg/dL (9-23)
[2016-10-31 22:03] LABS: CHLORIDE 113 mEq/L (99-109)
[2016-10-31 22:04] LABS: POTASSIUM 3.5 mEq/L (3.7-5.4); SODIUM 149 mEq/L (136-147)
[2016-10-31 22:05] LABS: GLUCOSE 115 mg/dL (70-99)
[2016-10-31 22:07] LABS: ANION GAP 11 MEQ/L (2-14)
[2016-10-31 22:09] LABS: GFR ESTIMATE (CALCULATED) > 59 mL/min/
[2016-10-31 22:10] LABS: UREA NITROGEN (BUN) 6 mg/dL (9-23)
[2016-10-31] MEDS ORDERED: SENNA-DOCUSATE1 EAC1 PO (22:24)
[2016-10-31] MEDS ORDERED: PREPARATION H C51 G1 PR (22:25)
[2016-10-31 22:45] VITALS: BP 105/85
== END 2016-10-31 22:55 | disposition home or self-care (01) ==
LOC: EME 18:31
PROVIDERS: Emergency Medicine
DX: K64.4 Residual hemorrhoidal skin tags (principal); K92.2 Gastrointestinal hemorrhage, unspecified; E87.0 Hyperosmolality and hypernatremia
CPT/HCPCS: 80048; 80048 91; 85027; 86900; 86901; 99281; 99285; J7030

== ENCOUNTER 2016-11-02 15:12 | Emergency (ER) | payer OTHER ==
[~2016-11-02] VITALS: Ht 177.8 cm; Wt 82.7 kg
[~2016-11-02 15:12] MED LIST changes: +PREPARATION H C51 G1 PR; +SENNA-DOCUSATE1 EAC1 PO
[2016-11-02 18:04] VITALS: BP 113/72
== END 2016-11-02 18:07 | disposition home or self-care (01) ==
LOC: EME 15:12
DX: S09.8XXA Other specified injuries of head, initial encounter (principal); S00.83XA Contusion of other part of head, initial encounter; S00.01XA Abrasion of scalp, initial encounter; Y00.XXXA Assault by blunt object, initial encounter; I10 Essential (primary) hypertension
CPT/HCPCS: 70450; 70486; 99281; 99285

== ENCOUNTER 2016-11-02 20:00 | Emergency (ER) | payer OTHER ==
[~2016-11-02] VITALS: Ht 177.8 cm; Wt 88.1 kg
[2016-11-02 21:35] LABS: HEMATOCRIT 28.9 % (38.0-50.0); MCH 28.8 PG (29.0-34.0); MCHC 32.5 G/DL (30.0-36.0); MCV 88.7 FL (86-99); MEAN PLAT.VOLUME 10.2 uM^3 (9.0-12.4); PLATELET COUNT 61 K/uL (156-360); RBC DIS.WIDTH-CV 19.3 % (11.8-14.6); RBC DIS.WIDTH-SD 63.7 % (39-53); RED BLOOD COUNT 3.26 M/uL (4.00-5.50); WHITE BLOOD COUNT 2.6 K/uL (4.1-10.2)
[2016-11-02 21:44] LABS: CHLORIDE 108 mEq/L (99-109); POTASSIUM 3.7 mEq/L (3.7-5.4); SODIUM 142 mEq/L (136-147)
[2016-11-02 21:46] LABS: GLUCOSE 102 mg/dL (70-99)
[2016-11-02 21:47] LABS: ANION GAP 9 MEQ/L (2-14)
[2016-11-02 21:50] LABS: GFR ESTIMATE (CALCULATED) > 59 mL/min/
[2016-11-02 21:51] LABS: UREA NITROGEN (BUN) 6 mg/dL (9-23)
[2016-11-03 00:02] VITALS: BP 106/67
== END 2016-11-03 00:13 | disposition home or self-care (01) ==
LOC: EME → EDBD 20:00 → EME 11-03 00:13
PROVIDERS: Emergency Medicine
DX: S00.10XA Contusion of unspecified eyelid and periocular area, initial encounter (principal); S00.412A Abrasion of left ear, initial encounter; Y09 Assault by unspecified means; Z91.81 History of falling; I11.0 Hypertensive heart disease with heart failure
CPT/HCPCS: 80048; 85027; 99281; 99285